=== PATIENT | female | born 1970 | race Two or more races ===

== ENCOUNTER 2024-03-24 19:35 | Emergency (ER) | payer OTHER, SELFPAY ==
[2024-03-24 19:41] VITALS: BP 143/77; PULSE 82; RESP 20; TEMP 36.3; O2SAT 98; BMI 28.9
--- NOTE | 2024-03-24 20:53 | CRLHL7_ITS ---
For Patients: As a result of the Century Cures Act, medical imaging exams and procedure reports are released immediately into your electronic medical record. You may view this report before your referring provider. If you have questions, please contact your health care provider. INDICATION: Abdominal pain. Hematuria. TECHNIQUE: Multiplanar CT examination of the abdomen and pelvis was performed without the use of intravenous contrast. COMPARISON: None. FINDINGS: Lower chest: No focal consolidation. Normal heart size. No pleural effusions or pneumothorax. Liver: Unremarkable. Gallbladder: Unremarkable. Biliary: Unremarkable. Pancreas: Within normal limits. Spleen: Unremarkable. Adrenal glands: Unremarkable. Renal/ureters/bladder: The left kidney appears slightly edematous, with mild left-sided hydroureteronephrosis to the level of the mid to distal ureter where there is an obstructing 4 mm urinary calculus (2:112). The right kidney is unremarkable without obstructive uropathy. Limited evaluation for renal masses without the use of intravenous contrast. Underdistended bladder limits evaluation. Pelvis: Hysterectomy. Gastrointestinal: No bowel wall thickening or bowel obstruction. Normal appendix. No significant colonic diverticulosis. Moderate colonic stool burden. Vasculature: No aortic aneurysm. Mild atherosclerotic calcifications. Lymph nodes: No pathologic lymphadenopathy by size criteria. Peritoneum: No free fluid or pneumoperitoneum. No drainable fluid collections. Abdominal wall/soft tissues: Unremarkable. Bones: No acute osseous abnormalities. Mild degenerative changes, with moderate degenerative disc disease at L4-L5. IMPRESSION: Mild left-sided hydroureteronephrosis to the level of the mid to distal ureter where there is an obstructing 4 mm urinary calculus. Please note that all CT scans at this facility use dose modulation, iterative reconstruction, and/or weight-based dosing when appropriate to reduce radiation dose to as low as reasonably achievable. Dictated by Mark Tavera MD @ 03/24/2024 10:19:30 PM (Electronically Signed)
--- NOTE | 2024-03-24 23:47 | ED.GENADULT ---
HPI - General Adult General Date Seen: 03/24/24 Chief complaint: Urogenital Problems, Female Stated complaint: Abdominal pain, blood in urine Time Seen by Provider: 03/24/24 22:31 Source: patient and RN notes reviewed Mode of arrival: ambulatory Limitations: no limitations History of Present Illness HPI narrative: Patient is a 54-year-old woman who says she had brown urine this morning, at around noon had hematuria and developed some left-sided abdominal pain and suprapubic pain. She went to Clinic, where she says they did a UA and told her she had a bladder infection, prescribed Bactrim, but she went home and pain became severe and felt similar to previous kidney stones. She said she took some ibuprofen prior to coming in and the pain is now settled down. She has had some nausea but no vomiting. No fevers, no dysuria. No frequency or urgency. Related Data Home Medications ?Medication ?Instructions ?Recorded ?Confirmed escitalopram oxalate 20 mg tablet 20 mg PO DAILY 03/24/24 03/24/24 sulfamethoxazole 800 1 tab PO BID 03/24/24 03/24/24 mg-trimethoprim 160 mg tablet Review of Systems Status of ROS: Reports: 10 or more systems reviewed and unremarkable except as noted in History and below [facility] Social History Non-prescribed substance use: denies use Exam Narrative: Exam Narrative: Vital signs as noted above. In general, an alert, well-appearing patient. Head: Normocephalic, atraumatic. Eyes: Pupils are equal reactive. Extraocular movements are full. Conjunctivae are normal. ENT: Mucous membranes are moist. Throat is normal. Neck: Supple without lymphadenopathy. Heart: Regular rate and rhythm. No murmur or rub. Lungs: Clear bilaterally. No increased work of breathing, crackles or wheezes. Abdomen: Soft and nontender. No CVA tenderness. Extremities: Well perfused. No edema. No calf tenderness. Pulses intact. Neurologic: Patient is alert and oriented to person and place. Speech is fluent. Face is symmetric. Moves all extremities equally. Affect: Normal. Skin: Warm and dry. Well perfused. Const: Vital Signs, click to edit/add: Vital Signs - 24 hr 03/24/24 19:41 Temperature 97.3 F L Pulse Rate [Pulse Oximeter] 82 Respiratory Rate 20 Blood Pressure [Ri ght Upper Arm] 143/77 H Pulse Oximetry 98 Oxygen Delivery Me thod Room Air Documenting provider has reviewed patient's vital signs: yes Course Course ED Course: I ordered a CT of the abdomen without contrast when this patient was in triage. Review shows mild hydronephrosis, and left ureteral stone, final radiology read as follows:FINDINGS: Lower chest: No focal consolidation. Normal heart size. No pleural effusions or pneumothorax. Liver: Unremarkable. Gallbladder: Unremarkable. Biliary: Unremarkable. Pancreas: Within normal limits. Spleen: Unremarkable. Adrenal glands: Unremarkable. Renal/ureters/bladder: The left kidney appears slightly edematous, with mild left-sided hydroureteronephrosis to the level of the mid to distal ureter where there is an obstructing 4 mm urinary calculus (2:112). The right kidney is unremarkable without obstructive uropathy. Limited evaluation for renal masses without the use of intravenous contrast. Underdistended bladder limits evaluation. Pelvis: Hysterectomy. Gastrointestinal: No bowel wall thickening or bowel obstruction. Normal appendix. No significant colonic diverticulosis. Moderate colonic stool burden. Vasculature: No aortic aneurysm. Mild atherosclerotic calcifications. Lymph nodes: No pathologic lymphadenopathy by size criteria. Peritoneum: No free fluid or pneumoperitoneum. No drainable fluid collections. Abdominal wall/soft tissues: Unremarkable. Bones: No acute osseous abnormalities. Mild degenerative changes, with moderate degenerative disc disease at L4-L5. IMPRESSION: Mild left-sided hydroureteronephrosis to the level of the mid to distal ureter where there is an obstructing 4 mm urinary calculus. Patient was able to show me the UA from earlier today in clinic. This showed greater than 100 red cells but 0 white blood cells. I do not think this likely represents urinary tract infection and I suggested she not take the Bactrim. Do recommend that she push fluids, we talked about medications here and she says right now she does not think she needs anything would like to have something for home. At 4 mm, would suspect this stone will pass, will have her strain her urine. Gave her the phone number for Urology if 7-10 in days go by and she fell she has not passed the stone. In the meantime, ibuprofen 400 mg 3 times daily, oxycodone, 10 tablets from [facility] as well as Zofran were provided. Return any time for new symptoms such as fever, chills, vomiting, severe uncontrolled pain. Vital Signs Vital signs: Initial Vital Signs Temperature 97.3 F L 03/24/24 19:41 Temperature Source Temporal Artery Scan 03/24/24 19:41 Pulse Rate 82 03/24/24 19:41 Respiratory Rate 20 03/24/24 19:41 Blood Pressure 143/77 H 03/24/24 19:41 Blood Pressure Mean 99 03/24/24 19:41 Pulse Oximetry 98 03/24/24 19:41 Oxygen Delivery Method Room Air 03/24/24 19:41 Vital Signs Temperature 97.3 F L 03/24/24 19:41 Pulse Rate 82 03/24/24 19:41 Respiratory Rate 20 03/24/24 19:41 Blood Pressure 143/77 H 03/24/24 19:41 Pulse Oximetry 98 03/24/24 19:41 Oxygen Delivery Method Room Air 03/24/24 19:41 Temperature 97.3 F L 03/24/24 19:41 Pulse Rate 82 03/24/24 19:41 Respiratory Rate 20 03/24/24 19:41 Blood Pressure 143/77 H 03/24/24 19:41 Pulse Oximetry 98 03/24/24 19:41 Oxygen Delivery Method Room Air 03/24/24 19:41 Discharge Plan Discharge Clinical Impression: Calculus of left ureter Patient Disposition: Home, Self-Care Condition: Stable Instructions: Ureteral Stones (ED) Additional Instructions: Push fluids, strain urine. Ibuprofen 400 mg 3 times daily with food for the next several days. Oxycodone if needed for more severe pain, Zofran if needed for nausea. If at any time if new symptoms such as fevers, chills, uncontrolled vomiting or severe uncontrolled pain, return to the emergency department. If you do not feel that you have passed the stone over the next 7-10 days, recommend urology follow-up, call [phone] for urology follow-up. Prescriptions: No Action sulfamethoxazole-trimethoprim 800-160 mg tablet 1 tab PO BID escitalopram oxalate 20 mg tablet 20 mg PO DAILY Stand Alone Forms: [employer] Info Instructions
== END 2024-03-24 22:57 | disposition home or self-care (01) ==
PROVIDERS: Emergency Provider Emergency Medicine
DX: N20.1 Calculus of ureter (principal)
CPT/HCPCS: 74176; 81001; 99283; 99284

== ENCOUNTER 2024-07-20 14:55 | Outpatient (CLI) | payer OTHER, SELFPAY ==
--- OUTSIDE RECORDS SUMMARY | 2024-07-20 15:02 | XMS_ITS | Clinical Summary ---
Author Organization [facility] Address [address] [place] [id number] Care Team Providers Care Salon Customer Experience Specialist Name Role Phone John Kelley PA-C Primary Care Provider Lizzie Shine RN Unavailable Unavailable John Kelley PA-C Unavailable + [phone] Allergies Active Allergy Reactions Criticality Noted Date Comments Dust Mites 01/25/2010 Other reaction(s): Rhinorrhea Prednisone 11/26/2018 Does not tolerate well, mood Medications Medication Sig Dispensed Refills Start Date End Date Status Vitamin D, Cholecalciferol, 10 MCG (400 UNIT) TABS Active fish oil-omega-3 fatty acids 1000 MG capsule Take 2 g by mouth daily Active magnesium 250 MG tablet Take 1 tablet by mouth daily Active albuterol (PROAIR HFA) 108 (90 Base) MCG/ACT inhalerIndications :Infection due to 2019 novel coronavirus Inhale 2 puffs into the lungs every 4 hours as needed for shortness of breath or wheezing 18 g 12/16/2023 Active escitalopram (LEXAPRO) 20 MG tabletIndications: Severe episode of recurrent major depressive disorder, without psychotic features (H) Take 1 tablet (20 mg) by mouth daily 90 tablet 1 04/29/2024 Active Semaglutide-Weight Management (WEGOVY) 1 MG/0.5ML penIndications:Cla ss 1 obesity with serious comorbidity and body mass index (BMI) of 30.0 to 30.9 in adult, unspecified obesity type Inject 1 mg subcutaneously once a week 6 mL 1 05/06/2024 Active Active Problems Problem Noted Date Diagnosed Date Major depressive disorder, recurrent episode, mi ld 11/26/2019 Carpal tunnel syndrome of right wrist 09/09/2015 BMI 33.0-33.9,adult 08/29/2015 Pre-diabetes 01/14/2015 Sleep apnea 09/29/2014 Fatty infiltration of liver 11/05/2012 Overview: Her history; notes dx in [place] Anxiety 01/17/2011 Vitamin D deficiency 12/02/2010 CARDIOVASCULAR SCREENING; LDL GOAL LESS THAN 160 11/24/2010 Depressive disorder, not elsewhere classified Resolved Problems Problem Noted Date Diagnosed Date Resolved Date Diabetes mellitus type II, n on insulin dependent 02/20/2023 02/20/2023 Major depression in complete remission 01/27/2013 08/29/2015 Moderate major depression 12/31/2012 Morbid obesity 11/05/2012 04/29/2024 Major depression in partial remission 06/27/2012 12/31/2012 Major depression in complete remission 03/20/2011 06/27/2012 Recurrent major depression i n partial remission 01/17/2011 03/20/2011 Major depression in complete remission 11/24/2010 01/17/2011 Encounters Date Type Department Care Team Description 05/28/2024 11:15 AM CDT Ancillary Procedure [facility] [address] [place] [phone] John Kelley PA-C Visit for screening mammogram 05/28/2024 Travel 05/01/2024 MyC Medical Advice [facility] [address] [place] [phone] John Kelley PA-C Medication Request 04/30/2024 MyC Medical Advice [facility] [address] [place] [phone] John Kelley PA-C Medication Request (Ozempic 1mg send to [facility]... 04/29/2024 10:30 AM CDT Office Visit [facility] [address] [place] [phone] John Kelley PA-C Routine general medical examination at a health care facility (Primary Dx); Pre-diabetes; Severe episode of recurrent major depressive disorder, without psychotic features (H); Class 1 obesity with serious comorbidity and body mass index (BMI) of 30.0 to 30.9 in adult, unspecified obesity type; Visit for screening mammogram 04/29/2024 Travel from Last 3 Months Immunizations Name Administration Dates Next Due Influenza (IIV3) PF 07/15/2014,10/31/2012,2010 MMR 08/22/2007,07/14/2007 Mantoux Tuberculin Skin Test 04/16/2017,12/11/19 14 TDAP (Adacel,Boostrix) 03/20/2011 TDAP Vaccine (Adacel) 03/21/2011 TDAP Vaccine (Boostrix) 03/30/2019 Tdap (Adult) Unspecified Formulation 03/20/2011, 04/19/2005 Varicella 08/22/2007,07/14/2007 Family History Medical History Relation Comments Diabetes Brother 1 Psychotic Disorder Brother 2 Schizophrenia Psychotic Disorder Brother 3 ? depression; on meds Cerebrovascular Disease Father Diabetes Mother Neurologic Disorder Mother TIA Colon Cancer No family hx of Relation Status Comments Brother 1 Brother 2 Brother 3 Father Mother Social History Tobacco Use Types Packs/Day Years Used Date Smoking Tobacco: Never Passive Smoke Exposure: Never Smokeless Tobacco: Never Tobacco Cessation:Counseling Given: Not Answered Alcohol Use Standard Drinks/Week Comments No 0 (1 standard drink = 0.6 oz pur e alcohol) Social Connection and Isolation Panel [NHANES] A nswer Date Recorded Frequency of Communication with Friends and Fami ly Not on file 04/29/2024 How often do you get together with friends or re latives? Never 04/29/2024 Attends Mosque Services Not on file 04/29 Active Member of Clubs or Organizations Not on f ile 04/29/2024 Attends Club or Organization Meetings Not on jakob e 04/29/2024 Marital Status Not on file 04/29/2024 PHQ-2 Answer Date Recorded PHQ-2 Score 5 04/29/2024 [facility] of Occupat ional Health - Occupational Stress Questionnaire Answer Date Recorded Do you feel stress - tense, restless, nervous, or anxious, or unable to sleep at night because your mind is troubled all the time - these days? Very much 04/29/2024 Exercise Vital Sign Answer Date Recorde d On average, how many days pe r week do you engage in moderate to strenuous exercise (like a brisk walk)? 1 day Minutes of Exercise per Session Not on file 04/29/2024 Adolescent Education Answer Date Record ed Getting School Help Needed Not on file 07/12 Food Insecurity Answer Date Recorded Within the past 12 months, d id you worry that your food would run out before you got money to buy more? No 04/29/2024 Within the past 12 months, d id the food you bought just not last and you didn? t have money to get more? No 04/29/2024 Housing Stability Answer Date Recorded Do you have housing? (Summer maya is defined as stable permanent housing and does not include staying ouside in a car, in a tent, in an abandoned building, in an overnight alf, or couch-surfing.) Yes 04/29/2024 Are you worried about losing your housing? No 04/29/2024 Financial Resource Strain Answer Date R ecorded Within the past 12 months, h ave you or your family members you live with been unable to get utilities (heat, electricity) when it was really needed? No 04/29/2024 Transportation Needs Answer Date Record ed Within the past 12 months, h as lack of transportation kept you from medical appointments, getting your medicines, non-medical meetings or appointments, work, or from getting things that you need? No 04/29/2024 Sex and Gender Information Value Date Recorded Sex Assigned at Not on file Gender Identity Not on file Sexual Orientation Not on file Last Filed Vital Signs Vital Sign Reading Time Taken Comments Blood Pressure 116/74 04/29/2024 10:18 AM CDT Pulse 69 04/29/2024 10:18 AM CDT Temperature 36.8 ??C (98.3 ??F) 04/29/2024 10:18 AM C DT Respiratory Rate 15 04/29/2024 10:18 AM CDT Oxygen Saturation 92% 04/29/2024 10:18 AM CDT Inhaled Oxygen Concentration - - Weight 90.9 kg (200 lb 4.8 oz) 04/29/2024 10:18 AM CDT Height 172.7 cm (5' 8) 04/29/2024 10:18 AM CDT Body Mass Index 30.46 04/29/2024 10:18 AM CDT Plan of Treatment Health Maintenance Due Date Last Done Comments ASTHMA ACTION PLAN 1970 CT COLONOGRAPHY 1970 FIT 1970 FLEX SIG 1970 sDNA (Cologuard) 1970 Pneumococcal Vaccine: Pediatrics (0 to 5 Years) and At-Risk Patients (6 to 64 Years) (1 of 2 - PCV) 02/01/1974 HIV SCREENING 02/01/1983 HEPATITIS B IMMUNIZATION (1 of 3 - 19+ 3-dose series) 02/01/1987 ZOSTER IMMUNIZATION (1 of 2) 02/01/2018 EYE EXAM 08/10/2023 08/10/2022 MICROALBUMIN 02/22/2024 02/21/2023 COVID-19 Vaccine ( season) 2024 03/09/2021, 02/17/2021 INFLUENZA VACCINE (#1) 2024 0 (Declined), 07/15/2014, 10/31/2012, Additional history exists A1C 07/30/2024 04/29/2024, 05/0 01/2023, 07/16/2022, Additional history exists ASTHMA CONTROL TEST 10/30/2024 04/29/2024, 02/20/2023, 09/27/2022, Additional history exists PHQ-9 10/30/2024 04/29/2024, 05/0 12/2022, 09/11/2022, Additional history exists ANNUAL REVIEW OF HM ORDERS 04/29/202504/29, 07/17/2022, 04/11/2021 BMP 04/29/2025 04/29/2024, 06/0 01/2024, 07/16/2022, Additional history exists LIPID 04/29/2025 04/29/2024, 05/0 01/2023, 11/26/2019, Additional history exists YEARLY PREVENTIVE VISIT 04/29/2025 04/29/20 24, 11/26/2019, 01/14/2015, Additional history exists MAMMO SCREENING 05/28/2026 05/28/2024, 02/18, 01/25/2015 DTAP/TDAP/TD IMMUNIZATION (6 - Td or Tdap) 03/30/2029 03/30/2019, 03/21/2011, 03/20/2011, Additional history exists ADVANCE CARE PLANNING 04/29/2029 04/29/2024 COLONOSCOPY 12/15/2029 12/15/2019, 11/22, 02/14/2010 COLORECTAL CANCER SCREENING 12/15/2029 RSV VACCINE (1 - 1-dose 75+ series) 02/01/2043 HEPATITIS C SCREENING Completed 04/20/2014 PAP Discontinued 01/14/2015, 10/21, 11/24/2010, Additional history exists DEPRESSION ACTION PLAN Completed 8, 10/23/2016, 08/29/2015, Additional history exists DIABETIC FOOT EXAM Discontinued HPV IMMUNIZATION Aged Out No longer e ligible based on patient's age to complete this topic MENINGITIS IMMUNIZATION Aged Out No l onger eligible based on patient's age to complete this topic RSV MONOCLONAL ANTIBODY Aged Out No l onger eligible based on patient's age to complete this topic Procedures Procedure Name Priority Date/Time Associated Diagnosis Comments MA SCREENING BILATERAL W/ LUIS ANGEL Routine 05/28/2024 11:07 AM CDT Visit for screening mammogram INSULIN LEVEL Routine 04/29/2024 10:53 AM CDT Pre-diabetes Class 1 obesity with serious comorbidity and body mass index (BMI) of 30.0 to 30.9 in adult, unspecified obesity type COMPREHENSIVE METABOLIC PANEL Routine 04/29/2024 10:53 AM CDT Routine general medical examination at a health care facility Pre-diabetes LIPID REFLEX TO DIRECT LDL PANEL Routine 04/29/2024 10:53 AM CDT Routine general medical examination at a health care facility HEMOGLOBIN A1C Routine 04/29/2024 10:53 AM CDT Pre-diabetes ALBUMIN RANDOM URINE QUANTITATIVE Routine 02/21/2023 2:01 PM CDT Diabetes mellitus type II, non insulin dependent (H) EYE EXAM - HIM SCAN 08/10/2022 1 2:00 AM CDT COLONOSCOPY Routine 12/15/2019 12:47 PM OFFICE TECHNOLOGY PROFESSOR ASTHMA CONTROL TEST - HIM SCAN Routine 11/24/2016 PAP IMAGED THIN LAYER SCREEN Routine 01/14/2015 12:00 AM CDT Routine General Medical Examination At A [facility] HEPATITIS C ANTIBODY Routine 04/20/2014 2:53 PM CDT Fatty infiltration of liver from Last 3 Months or Most Recently Relevant to Health Maintenance Results * MA Screen Bilateral w/Luis Angel (05/28/2024 11:07 AM CDT) Anatomical Region Laterality Modality Breast Bilateral Mammography Impressions 05/29/2024 8:50 AM CDT IMPRESSION: ACR BI-RADS Category 1: Negative BREAST CANCER SCREENING RECOMMENDATION: Routine yearly mammography beginning at age 40 or as discussed with your provider. The results and recommendations of this examination will be communicated to the patient. Maurizio Rhodes MD Narrative 05/29/2024 8:50 AM CDT BILATERAL FULL FIELD DIGITAL SCREENING MAMMOGRAM WITH TOMOSYNTHESIS Performed on: 05/28/24 Compared to: 03/05/2023 and 01/25/2015 Technique: ??This study was evaluated with the assistance of Computer-Aided Detection. ??Breast Tomosynthesis was used in interpretation. Findings: There are scattered areas of fibroglandular density. ??There is no radiographic evidence of malignancy. John Kelley PA-C IMG MAMMOGRAPH Y ORDERABLES * Insulin level (04/29/2024 10:53 AM CDT) Insulin 11.0 2.6 - 24.9 uU/mL 04/30/2024 8:25 AM CDT [facility] Blood BLOOD SPECIMEN / Unknown Venipuncture / Unknown 04/29/2024 10:53 AM CDT 04/29/2024 10:53 AM CDT John Kelley PA-C LAB - BLOOD OR DERABLES [facility] [address] [facility], [address] [place] [address], [facility] * (ABNORMAL) Lipid panel reflex to direct LDL Fasting (04/29/2024 10:53 AM CDT) Cholesterol 238(H) <200 mg/dL 04/30/2024 8:25 AM CDT [facility] Triglycerides 135 <150 mg/dL 04/30/2024 8:25 AM CDT [facility] Direct Measure HDL 62 >=50 mg/dL 04/30/2024 8:25 AM CDT [facility] LDL Cholesterol Calculated 149(H) <=100 mg/dL 04/30/2024 8:25 AM CDT [facility] Non HDL Cholesterol 176(H) <130 mg/dL 04/30/2024 8:25 AM CDT [facility] Patient Fasting > 8hrs? Yes 04/30/2024 8:25 AM CDT [facility] Blood BLOOD SPECIMEN / Unknown Venipuncture / Unknown 04/29/2024 10:53 AM CDT 04/29/2024 10:53 AM CDT Narrative [facility] - 04/30/2024 8:25 AM CDT Cholesterol Desirable: ??<200 mg/dL Triglycerides Normal: ??Less than 150 mg/dL Borderline High: ??150-199 mg/dL High: ??200-499 mg/dL Very High: ??Greater than or equal to 500 mg/dL Direct Measure HDL Female: ??Greater than or equal to 50 mg/dL Male: ??Greater than or equal to 40 mg/dL LDL Cholesterol Desirable: ??<100mg/dL Above Desirable: ??100-129 mg/dL Borderline High: ??130-159 mg/dL High: ??160-189 mg/dL Very High: ??>= 190 mg/dL Non HDL Cholesterol Desirable: ??130 mg/dL Above Desirable: ??130-159 mg/dL Borderline High: ??160-189 mg/dL High: ??190-219 mg/dL Very High: ??Greater than or equal to 220 mg/dL John Kelley PA-C LAB - BLOOD OR DERABLES [facility] [address] [facility], [address] [place] [phone] * HEMOGLOBIN A1C (04/29/2024 10:53 AM CDT) Hemoglobin A1C 5.5 0.0 - 5.6 % 04/29/2024 11:12 AM CDT [facility] Comment: Normal <5.7% Prediabetes 5.7-6.4% ?? Diabetes 6.5% or higher Note: Adopted from ADA consensus guidelines. Blood BLOOD SPECIMEN / Unknown Venipuncture / Unknown 04/29/2024 10:53 AM CDT 04/29/2024 10:53 AM CDT John Kelley PA-C LAB - BLOOD OR DERABLES LABORATORY [facility] [place] [facility] [address] [facility] (no room number, 1st floor of clinic) [place] [address], [facility] * (ABNORMAL) Comprehensive metabolic panel (BMP + Alb, Alk Phos, ALT, AST, Total. Bili, TP) (04/29/2024 10:53 AM CDT) Sodium 141 135 - 145 mmol/L 04/30/2024 8:25 AM CDT [facility] Potassium 4.7 3.4 - 5.3 mmol/L 04/30/2024 8:25 AM CDT [facility] Carbon Dioxide (CO2) 29 22 - 29 mmol/L 04/30/2024 8:25 AM CDT [facility] Anion Gap 7 7 - 15 mmol/L 04/30/2024 8:25 AM CDT [facility] Urea Nitrogen 12.3 6.0 - 20.0 mg/dL 04/30/2024 8:25 AM CDT [facility] Creatinine 0.60 0.51 - 0.95 mg/dL 04/30/2024 8:25 AM CDT [facility] GFR Estimate >90 >60 mL/min/1. 73m2 04/30/2024 8:25 AM CDT [facility] Comment:eGFR calculated us2020 CKD-EPI equation. Calcium 9.7 8.6 - 10.0 mg/dL 04/30/2024 8:25 AM CDT [facility] Chloride 105 98 - 107 mmol/L 04/30/2024 8:25 AM CDT [facility] Glucose 102(H) 70 - 99 mg/dL 04/30/2024 8:25 AM CDT [facility] Alkaline Phosphatase 64 40 - 150 U/L 04/30/2024 8:25 AM CDT [facility] AST 24 0 - 45 U/L 04/30/2024 8:25 AM CDT [facility] Comment:Reference intervals for this test were updated on 04/01/2023 to more accurately reflect our healthy population. There may be differences in the flagging of prior results with similar values performed with this method. Interpretation of those prior results can be made in the context of the updated reference intervals. ALT 25 0 - 50 U/L 04/30/2024 8:25 AM CDT [facility] Comment:Reference intervals for this test were updated on 04/01/2023 to more accurately reflect our healthy population. There may be differences in the flagging of prior results with similar values performed with this method. Interpretation of those prior results can be made in the context of the updated reference intervals. Protein Total 7.6 6.4 - 8.3 g/dL 04/30/2024 8:25 AM CDT [facility] Albumin 4.4 3.5 - 5.2 g/dL 04/30/2024 8:25 AM CDT [facility] Bilirubin Total 0.5 <=1.2 mg/dL 04/30/2024 8:25 AM CDT [facility] Patient Fasting > 8hrs? Yes 04/30/2024 8:25 AM CDT [facility] Blood BLOOD SPECIMEN / Unknown Venipuncture / Unknown 04/29/2024 10:53 AM CDT 04/29/2024 10:53 AM CDT John Kelley PA-C LAB - BLOOD OR DERABLES [facility] [address] [facility], [address] [place] [phone] * Albumin Random Urine Quantitative with Creat Ratio (02/21/2023 2:01 PM CDT) Creatinine Urine mg/dL 152.0 mg/dL 02/21/2023 8:49 PM CDT [facility] Comment:The reference ranges have not been established in urine creatinine. The results should be integrated into the clinical context for interpretation. Albumin Urine mg/L <12.0 mg/L 2022 8:49 PM CDT [facility] Comment:The reference ranges have not been established in urine albumin. The results should be integrated into the clinical context for interpretation. Albumin Urine mg/g Cr 02/21/2023 8:49 PM CDT [facility] Comment: Unable to calculate, urine albumin and/or urine creatinine is outside detectable limits. Microalbuminuria is defined as an albumin:creatinine ratio of 17 to 299 for males and 25 to 299 for females. A ratio of albumin:creatinine of 300 or higher is indicative of overt proteinuria. Due to biologic variability, positive results should be confirmed by a second, first-morning random or 24-hour timed urine specimen. If there is discrepancy, a third specimen is recommended. When 2 out of 3 results are in the microalbuminuria range, this is evidence for incipient nephropathy and warrants increased efforts at glucose control, blood pressure control, and institution of therapy with an keeodugufrq-qiybxacqpm-zfppoz (ANEUDY) inhibitor (if the patient can tolerate it). ?? Urine URINE SPECIMEN / Unknown Non-blood Collection / Unknown 02/21/2023 2:01 PM CDT 02/21/2023 2:01 PM CDT John Kelley PA-C LAB - URINE OR DERABLES LABORATORY [facility] [address] [facility], [address] [place] [phone], [facility] [phone] * EYE EXAM - HIM SCAN (08/10/2022 12:00 AM CDT) RETINOPATHY NEGATIVE 08/10/2022 Narrative Ethel Max - 08/10/2022 12:00 AM CDT EYE EXAM FAMILY VISION Provider Outside OTHER * COLONOSCOPY (12/15/2019 12:47 PM OFFICE TECHNOLOGY PROFESSOR) COLONOSCOPY [facility] Patient Name: Miranda Scott ?Procedure Date: 12/15/2019 12:47 PM ? Date of : 1970 ?Admit Type: Outpatient Age: 49 ? Gender: Female Attending MD: Ricki Thornton MD ?? Total Sedation Time: 47_minutes continuous bedside 1:1 Instrument Name: 216 - Pediatric Colonoscope,224 - Adult Colonoscope Procedure: ?Colonoscopy Indications: ?Screening for colorectal malignant neoplasm Providers: ?Ricki Thornton MD (Doctor) Referring MD: ? JOSE Burleson (Referring MD) Medicines: ?Midazolam 4 mg IV, Fentanyl 200 micrograms IV Complications: ?No immediate complications. Procedure: ?Pre-Anesthesia Assessment: ?- Prior to the procedure, a History and Physical ?was performed, and patient medications and ?allergies were reviewed. The patient is competent. ?The risks and benefits of the procedure and the ?sedation options and risks were discussed with the ?patient. All questions were answered and informed ?consent was obtained. Patient identification and ?proposed procedure were verified by the physician ?in the procedure room. Mental Status Examination: ?alert and oriented. Airway Examination: normal ?oropharyngeal airway and neck mobility. Respiratory ?Examination: clear to auscultation. CV Examination: ?normal. Prophylactic Antibiotics: The patient does ?not require prophylactic antibiotics. Prior ?Anticoagulants: The patient has taken no previous ?anticoagulant or antiplatelet agents. ASA Grade ?Assessment: II - A patient with mild systemic ?disease. After reviewing the risks and benefits, ?the patient was deemed in satisfactory condition to ?undergo the procedure. The anesthesia plan was to ?use moderate sedation / analgesia (conscious ?sedation). Immediately prior to administration of ?medications, the patient was re-assessed for ?adequacy to receive sedatives. The heart rate, ?respiratory rate, oxygen saturations, blood ?pressure, adequacy of pulmonary ventilation, and ?response to care were monitored throughout the ?procedure. The physical status of the patient was ?re-assessed after the procedure. ?After obtaining informed consent, the colonoscope ?was passed under direct vision. Throughout the ?procedure, the patient's blood pressure, pulse, and ?oxygen saturations were monitored continuously. The ?Vidavee Pediatric Colonoscope, Model # PCF-H190DL, ?Endora # 216, SN # [id number] was introduced through ?the anus and advanced to the cecum, identified by ?appendiceal orifice and ileocecal valve. The ?Vidavee Adult Colonoscope, Model # CF-WL640W, ?Endora # 224, SN # [id number] was introduced through ?the and advanced to. The patient tolerated the ?procedure well. The quality of the bowel ?preparation was good. During the procedure the ?patient had to be repositioned. The colonoscopy was ?performed without difficulty. The colonoscopy was ?technically difficult and complex due to a ?redundant colon. Successful completion of the ?procedure was aided by increasing the dose of ?sedation medication and performing the maneuvers ?documented (below) in this report. ? Findings: ? The perianal and digital rectal examinations were normal. ? The entire examined colon appeared normal on direct and retroflexion ? views. ? Impression: ? - The entire examined colon is normal on direct and ?retroflexion views. ?- No specimens collected. Recommendation: ? - Repeat colonoscopy in 10 years for screening ?purposes. ? Procedure Code(s): ? --- Professional --- ? G0121, Colorectal cancer screening; colonoscopy on individual not ? meeting criteria for high risk Diagnosis Code(s): ? --- Professional --- ? Z12.11, Encounter for screening for malignant neoplasm of colon CPT copyright 2018 [employer]. All rights reserved. The codes documented in this report are preliminary and upon hospital coder review may be revised to meet current compliance requirements. Electronically signed by Ricki Thornton MD __ Ricki Thornton MD 12/15/2019 1:42:45 PM I was physically present for the entire viewing portion of the exam. Ricki Thornton MD Number of Addenda: 0 Note Initiated On: 12/15/2019 12:47 PM MRN: ?[id number] Procedure Date: ? 12/15/2019 12:47:39 PM Scope Withdrawal Time: 0 hours 6 minutes 18 seconds Total Procedure Duration: 0 hours 45 minutes 33 seconds Estimated Blood Loss: ? Scope In: 12:53:17 PM Scope Out: 1:38:50 PM RADIOLOGY RESULTS 12/15/2019 12:4 7 PM OFFICE TECHNOLOGY PROFESSOR John Kelley PA-C PROCEDURES RADIOLOGY RESULTS * Asthma Control Test - HIM Scan (11/24/2016) ASTHMA HOSPITALIZATIONS 0 ASTHMA ER 0 ACT SCORE 6 Narrative Hazel Bo - 11/24/2016 [place] [facility], PROGRESS NOTE Provider Outside PFT ORDERABLES * PAP imaged thin layer, screen (01/14/2015 12:00 AM CDT) PAP REJI Polo Report Patient Name: MIRANDA SCOTT MR#: [id number] Specimen #: [id number] Collected: 01/14/2015 Received: 01/17/2015 Reported: 01/18/2015 11:43 Ordering Phy(s): ALBA VU SPECIMEN/STAIN PROCESS: Pap imaged thin layer prep screening (Surepath, FocalPoint with guided screening) ? Pap-Cyto x 1, Reflex HPV if ASCUS/LSIL x 1 SOURCE: Cervical, endocervical Pap imaged thin layer prep screening (Surepath, FocalPoint with guided screening) SPECIMEN ADEQUACY: Satisfactory for evaluation. -Transformation zone component present. CYTOLOGIC INTERPRETATION: Negative for Intraepithelial Lesion or Malignancy Electronically signed out by: DEDE Hazel (ASCP) Processed and screened at [facility] CLINICAL HISTORY: Previous normal pap Date of Last Pap: 11/05/12, Papanicolaou Test Limitations: ??Cervical cytology is a screening test with limited sensitivity; regular screening is critical for cancer prevention; Pap tests are primarily effective for the diagnosis/preventi on of squamous cell carcinoma, not adenocarcinomas or other cancers. TESTING LAB LOCATION: [facility] [address] [place], [place] ??[phone] COLLECTION SITE: Client: ??[facility] Location: RMFP (R) COPATH Cytologic material (specimen) 01/14/2015 01/17/2015 11:14 AM CDT Alba Vu MD LAB - OPTIME CLINICA L SPECIMEN Performing Organization Address City/[facility]/ZIP Co de Phone Number COPATH * Hepatitis C antibody (04/20/2014 2:53 PM CDT) Hepatitis C Antibody Negative NEG [facility] Blood specimen (specimen) 04/20/2014 2:53 PM CDT 04/20/2014 2:54 PM CDT Alba Vu MD LAB - BLOOD ORDERABL ES [facility] from Last 3 Months or Most Recently Relevant to Health Maintenance Care Teams Salon Customer Experience Specialist Relationship Specialty Start Date End Date John Kelley PA-C [id number] [address] [id number] PCP - General Physician Population Health Manager - Medical 12/15/19 Lizzie Shine, COURT[place] Personal Advocate & Liaison (PAL) 02/04/20 John Kelley PA-C [id number] [address] [phone] Assigned PCP 03/02/23
--- OUTSIDE RECORDS SUMMARY | 2024-07-20 15:02 | XMS_ITS | Encounter Summary ---
Author Organization [facility] Address [address] [place] [address]. [place] [address] Care Team Providers Care Trimmer And Borer Machine Operator Name Role Phone John Kelley PA-C Primary Care Provider Lizzie Shine RN Unavailable Unavailable John Kelley PA-C Unavailable + [phone] Reason for Referral * Diagnostic Imaging Mammo (Routine) - Pending Review Specialty Diagnoses / Procedures Referred By Ирина ayers Referred To Contact Radiology. Diagnoses Visit for screening mammogram Procedures MA Diagnostic Digital Bilateral John Kelley PA-C [address] [place] [address] Referral ID Status Reason Start Date Expiration Date V isits Requested Visits Authorized [id number] Pending Review 04/29/2024 04/29/2025 1 1 Reason for Visit * Reason Comments Physical Recheck Medication Encounter Details Date Type Department Care Team (Late st Contact Info) Description 04/29/2024 10:30 AM CDT Office Visit [facility] [address] [place] [id number] John Kelley PA-C [address] [place] [address] Routine general medical examination at a health care facility (Primary Dx); Pre-diabetes; Severe episode of recurrent major depressive disorder, without psychotic features (H); Class 1 obesity with serious comorbidity and body mass index (BMI) of 30.0 to 30.9 in adult, unspecified obesity type; Visit for screening mammogram Social History Tobacco Use Types Packs/Day Years Used Date Smoking Tobacco: Never Passive Smoke Exposure: Never Smokeless Tobacco: Never Alcohol Use Standard Drinks/Week Comments No 0 (1 standard drink = 0.6 oz pur e alcohol) Social Connection and Isolation Panel [NHANES] A nswer Date Recorded Frequency of Communication with Friends and Fami ly Not on file 04/29/2024 How often do you get together with friends or re latives? Never 04/29/2024 Attends Sabianism Services Not on file 04/29 Active Member of Clubs or Organizations Not on f ile 04/29/2024 Attends Club or Organization Meetings Not on jakbo e 04/29/2024 Marital Status Not on file 04/29/2024 PHQ-2 Answer Date Recorded PHQ-2 Score 5 04/29/2024 [facility] - Occupational Stress [...] Answer Date Recorded Do you have housing? (Housin g is defined as stable permanent housing and does not include staying ouside in a car, in a tent, in an abandoned building, in an overnight usp, or couch-surfing.) Yes 04/29/2024 Are you worried [...] on file Sexual Orientation Not on file documented as of this encounter Last Filed Vital Signs Vital Sign Reading [...] Mass Index 30.46 04/29/2024 10:18 AM CDT documented in this encounter Patient Instructions * Patient Instructions* John Kelley PA-C - 04/29/2024 10:30 AM CDT Images from the original note were not included. Patient Education Preventive Care Advice This is general advice given by our system to help you stay healthy. However, your care team may have specific advice just for you. Please talk to your care team about your preventive care needs. Nutrition Eat 5 or more servings of fruits and vegetables each day. Try wheat bread, brown rice and whole grain pasta (instead of white bread, rice, and pasta). Get enough calcium and vitamin D. Check the label on foods and aim for 100% of the PUG MACHINE OPERATOR (recommendeddaily allowance). Lifestyle Exercise at least 150 minutes each week (30 minutes a day, 5 days a week). Do muscle strengthening activities 2 days a week. These help control your weight and prevent disease. No smoking. Wear sunscreen to prevent skin cancer. Have a dental exam and cleaning every 6 months. Yearly exams See your health care team every year to talk about: Any changes in your health. Any medicines your care team has prescribed. Preventive care, family planning, and ways to prevent chronic diseases. Shots (vaccines) HPV shots (up to age 26), if you've never had them before. Hepatitis B shots (up to age 59), if you've never had them before. COVID-19 shot: Get this shot when it's due. Flu shot: Get a flu shot every year. Tetanus shot: Get a tetanus shot every 10 years. Pneumococcal, hepatitis A, and RSV shots: Ask your care team if you need these based on your risk. Shingles shot (for age 50 and up) General health tests Diabetes screening: Starting at age 35, Get screened for diabetes at least every 3 years. If you are younger than age 35, ask your care team if you should be screened for diabetes. Cholesterol test: At age 39, start having a cholesterol test every 5 years, or more often if advised. Bone density scan (DEXA): At age 50, ask your care team if you should have this scan for osteoporosis (brittle bones). Hepatitis C: Get tested at least once in your life. STIs (sexually transmitted infections) Before age 24: Ask your care team if you should be screened for STIs. After age 24: Get screened for STIs if you're at risk. You are at risk for STIs (including HIV) if: You are sexually active with more than one person. You don't use condoms every time. You or a partner was diagnosed with a sexually transmitted infection. If you are at risk for HIV, ask about PrEP medicine to prevent HIV. Get tested for HIV at least once in your life, whether you are at risk for HIV or not. Cancer screening tests Cervical cancer screening: If you have a cervix, begin getting regular cervical cancer screening tests starting at age 21. Breast cancer scan (mammogram): If you've ever had breasts, begin having regular mammograms starting at age 40. This is a scan to check for breast cancer. Colon cancer screening: It is important to start screening for colon cancer at age 45. Have a colonoscopy test every 10 years (or more often if you're at risk) Or, ask your provider about stool tests like a FIT test every year or Cologuard test every 3 years. To learn more about your testing options, visit: . For help making a decision, visit: https://bit.ly/nj90170. Prostate cancer screening test: If you have a prostate, ask your care team if a prostate cancer screening test (PSA) at age 55 is right for you. Lung cancer screening: If you are a current or former smoker ages 50 to 80, ask your care team if ongoing lung cancer screenings are right for you. For informational purposes only. Not to replace the advice of your health care provider. Copyright ?? 2022 [employer]. All rights reserved. Clinically reviewed by the [facility]. Dogeo [id number] - REV 11/13. Learning About Stress What is stress? Stress is your body's response to a hard situation. Your body can have a physical, emotional, or mental response. Stress is a fact of life for most people, and it affects everyone differently. What causes stress for you may not be stressful for someone else. A lot of things can cause stress. You may feel stress when you go on a job interview, take a test, or run a race. This kind of short-term stress is normal and even useful. It can help you if you needto work hard or react quickly. For example, stress can help you finish an important job on time. Long-term stress is caused by ongoing stressful situations or events. Examples of long-term stress include long-term health problems, ongoing problems at work, or conflicts in your family. Long-term stress can harm your health. How does stress affect your health? When you are stressed, your body responds as though you are in danger. It makes hormones that speedup your heart, make you breathe faster, and give you a burst of energy. This is called the nytkz-pp-osornk stress response. If the stress is over quickly, your body goes back to normal and no harm isdone. But if stress happens too often or lasts too long, it can have bad effects. Long-term stress can make you more likely to get sick, and it can make symptoms of some diseases worse. If you tense up when you are stressed, you may develop neck, shoulder, or low back pain. Stress is linked to high bloodpressure and heart disease. Stress also harms your emotional health. It can make you charles, tense, or depressed. Your relationships may suffer, and you may not do well at work or school. What can you do to manage stress? You can try these things to help manage stress: Do something active. Exercise or activity can help reduce stress. Walking is a great way to get started. Even everyday activities such as housecleaning or yard work can help. Try yoga or laney chi. These techniques combine exercise and meditation. You may need some training at first to learn them. Do something you enjoy. For example, listen to music or go to a movie. Practice your hobby or do volunteer work. Meditate. This can help you relax, because you are not worrying about what happened before or what may happen in the future. Do guided imagery. Imagine yourself in any setting that helps you feel calm. You can use online videos, books, or a teacher to guide you. Do breathing exercises. For example: From a standing position, bend forward from the waist with your knees slightly bent. Let your arms dangle close to the floor. Breathe in slowly and deeply as you return to a standing position. Roll up slowly and lift your head last. Hold your breath for just a few seconds in the standing position. Breathe out slowly and bend forward from the waist. Let your feelings out. Talk, laugh, cry, and express anger when you need to. Talking with supportive friends or family, a counselor, or a tom leader about your feelings is a healthy way to relieve stress. Avoid discussing your feelings with people who make you feel worse. Write. It may help to write about things that are bothering you. This helps you find out how much stress you feel and what is causing it. When you know this, you can find better ways to cope. What can you do to prevent stress? You might try some of these things to help prevent stress: Manage your time. This helps you find time to do the things you want and need to do. Get enough sleep. Your body recovers from the stresses of the day while you are sleeping. Get support. Your family, friends, and community can make a difference in how you experience stress. Limit your news feed. Avoid or limit time on social media or news that may make you feel stressed. Do something active. Exercise or activity can help reduce stress. Walking is a great way to get started. Where can you learn more? Go to https://www.[employer].net/patiented Enter N032 in the search box to learn more about Learning About Stress. Current as of: August 13, 2023?Content Version: 14.0 ?? [employer]. Care instructions adapted under license by your healthcare professional. If you have questions about a medical condition or this instruction, always ask your healthcare professional. [employer] disclaims any warranty or liability for your use of this information. Learning About Depression Screening What is depression screening? Depression screening is a way to see if you have depression symptoms. It may be done by a doctor orcounselor. It's often part of a routine checkup. That's because your mental health is just as important as your physical health. Depression is a mental health condition that affects how you feel, think, and act. You may: Have less energy. Lose interest in your daily activities. Feel sad and grouchy for a long time. Depression is very common. It affects people of all ages. Many things can lead to depression. Some people become depressed after they have a stroke or find out they have a major illness like cancer or heart disease. The of a loved one or a breakup maylead to depression. It can run in families. Most experts believe that a combination of inherited genes and stressful life events can cause it. What happens during screening? You may be asked to fill out a form about your depression symptoms. You and the doctor will discussyour answers. The doctor may ask you more questions to learn more about how you think, act, and feel. What happens after screening? If you have symptoms of depression, your doctor will talk to you about your options. Doctors usually treat depression with medicines or counseling. Often, combining the two works best.Many people don't get help because they think that they'll get over the depression on their own. But people with depression may not get better unless they get treatment. The cause of depression is not well understood. There may be many factors involved. But if you havedepression, it's not your fault. A serious symptom of depression is thinking about or suicide. If you or someone you care about talks about this or about feeling hopeless, get help right away. It's important to know that depression can be treated. Medicine, counseling, and self-care may help. Where can you learn more? Go to https://www.[employer].net/patiented Enter T185 in the search box to learn more about Learning About Depression Screening. Current as of: April 13, 2023?Content Version: 14.0 ?? [email or web address]. Care instructions adapted under license by your healthcare professional. If you have questions about a medical condition or this instruction, always ask your healthcare professional. [employer] disclaims any warranty or liability for your use of this information. documented in this encounter Progress Notes * John Kelley PA-C - 04/29/2024 10:30 AM CDT Preventive Care Visit [facility] John Kelley PA-C, Family Medicine Apr 29, 2024 Assessment & Plan Routine general medical examination at a health care facility Reviewed personal and family history. Reviewed age appropriate screenings. Reviewed healthy BP and BMI ranges. Counseled on lifestyle modifications for optimal mental and physical health. Discussed age-appropriate health maintanence. Recommended any needed vaccinations. Continue to focus on well bal anced diet and exercise - Lipid panel reflex to direct LDL Fasting; Future - Comprehensive metabolic panel (BMP + Alb, Alk Phos, ALT, AST, Total. Bili, TP); Future - Lipid panel reflex to direct LDL Fasting - Comprehensive metabolic panel (BMP + Alb, Alk Phos, ALT, AST, Total. Bili, TP) Pre-diabetes Checking labs today. Patient is unable to get Ozempic after being on it x 1.5 years. Checking into options. We did discuss the possibility of using the compounding version with [facility]. She will letme know. - HEMOGLOBIN A1C; Future - Comprehensive metabolic panel (BMP + Alb, Alk Phos, ALT, AST, Total. Bili, TP); Future - Insulin level; Future - HEMOGLOBIN A1C - Comprehensive metabolic panel (BMP + Alb, Alk Phos, ALT, AST, Total. Bili, TP) - Insulin level Severe episode of recurrent major depressive disorder, without psychotic features (H) Mood stable, having some life stressors but overall doing well. Refilling. - escitalopram (LEXAPRO) 20 MG tablet; Take 1 tablet (20 mg) by mouth daily Class 1 obesity with serious comorbidity and body mass index (BMI) of 30.0 to 30.9 in adult, unspecified obesity type - Insulin level; Future - Insulin level Visit for screening mammogram - MA Diagnostic Digital Bilateral; Future Patient has been advised of split billing requirements and indicates understanding: Yes BMI Estimated body mass index is 30.46 kg/m?? as calculated from the following: Height as of this encounter: 1.727 m (5' 8). Weight as of this encounter: 90.9 kg (200 lb 4.8 oz). Weight management plan: Discussed healthy diet and exercise guidelines Counseling Appropriate preventive services were discussed with this patient, including applicable screening asappropriate for fall prevention, nutrition, physical activity, Tobacco-use cessation, weight loss and cognition. Checklist reviewing preventive services available has been given to the patient. Reviewed patient's diet, addressing concerns and/or questions. She is at risk for lack of exercise and has been provided with information to increase physical activity for the benefit of her well-being. Patient is at risk for social isolation and has been provided with information about the benefit ofsocial connection. The patient's PHQ-9 score is consistent with moderate depression. She was provided with informationregarding depression. Andrea Jean is a 54 year old, presenting for the following: Physical and Recheck Medication 04/29/2024 10:15 AM Additional Questions Roomed by Shayy Anaya ([facility]) Accompanied by 04/29/2024 10:15 AM Patient Reported Additional Medications Patient reports taking the following new medications none Health Care Directive Patient does not have a Health Care Directive or Living Will: Discussed advance care planning with patient; however, patient declined at this time. HPI Pt. Would like to discuss about Ozempic as no longer is covered by my insurance Pt. Is fasting for today. Pt. Request for labs to be done today. See's an Elementary School Director- they did an appeal but was denied. Has gained back 10 lbs in a month. Went from 229# to 190# Two brothers with diabetes, one had a stroke Got muscle pain with crestor. Mood- life changes, selling property, is retiring. Has been out for about 10 days. Feels mood is doing ok overall. 04/29/2024 General Health How would you rate your overall physical health? (!) FAIR Feel stress (tense, anxious, or unable to sleep) Very much (!) STRESS CONCERN 04/29/2024 Nutrition Three or more servings of calcium each day? Yes Diet: Other If other, please elaborate: low carb How many servings of fruit and vegetables per day? (!) 0-1 How many sweetened beverages each day? 0-1 04/29/2024 Exercise Days per week of moderate/strenous exercise 1 day (!) EXERCISE CONCERN 04/29/2024 Social Factors Frequency of gathering with friends or relatives Never Worry food won't last until get money to buy more No Food not last or not have enough money for food? No Do you have housing? (Housing is defined as stable permanent housing and does not include staying ouside in a car, in a tent, in an abandoned building, in an overnight usp, or couch-surfing.) Yes Are you worried about losing your housing? No Lack of transportation? No Unable to get utilities (heat,electricity)? No (!) SOCIAL CONNECTIONS CONCERN 04/29/2024 Fall Risk Fallen 2 or more times in the past year? No Trouble with walking or balance? No 04/29/2024 Dental Dentist two times every year? Yes 04/29/2024 TB Screening Were you born outside of the [place]? Yes Today's PHQ-9 Score: 04/29/2024 10:07 AM PHQ-9 SCORE PHQ-9 Total Score MyChart 10 (Moderate depression) PHQ-9 Total Score 10 04/29/2024 Substance Use Alcohol more than 3/day or more than 7/wk Not Applicable Do you use any other substances recreationally? No Social History Tobacco Use Smoking status: Never Passive exposure: Never Smokeless tobacco: Never Vaping Use Vaping status: Never Used Substance Use Topics Alcohol use: No Alcohol/week: 0.0 standard drinks of alcohol Drug use: No Mammogram Screening - Mammogram every 1-2 years updated in Health Maintenance based on mutual decision making 04/29/2024 One time HIV Screening Previous HIV test? No 04/29/2024 STI Screening New sexual partner(s) since last STI/HIV test? No History of abnormal Pap smear: Status post hysterectomy with removal of cervix and no history of CIN2 or greater or cervical cancer. Health Maintenance and Surgical History updated. 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 Objective Exam BP 116/74 (BP Location: Right arm, Patient Position: Sitting, Cuff Size: Adult Regular) Pulse 69 Temp 98.3 ??F (36.8 ??C) Resp 15 Ht 1.727 m (5' 8) Wt 90.9 kg (200 lb 4.8 oz) LMP 11/16/2014 SpO2 92% BMI 30.46 kg/m?? Estimated body mass index is 30.46 kg/m?? as calculated from the following: Height as of this encounter: 1.727 m (5' 8). Weight as of this encounter: 90.9 kg (200 lb 4.8 oz). Physical Exam GENERAL: alert and no distress EYES: Eyes grossly normal to inspection, PERRL and conjunctivae and sclerae normal HENT: ear canals and TM's normal, nose and mouth without ulcers or lesions NECK: no adenopathy, no asymmetry, masses, or scars RESP: lungs clear to auscultation - no rales, rhonchi or wheezes CV: regular rate and rhythm, normal S1 S2, no S3 or S4, no murmur, click or rub, no peripheral edema ABDOMEN: soft, nontender, no hepatosplenomegaly, no masses and bowel sounds normal MS: no gross musculoskeletal defects noted, no edema SKIN: no suspicious lesions or rashes NEURO: Normal strength and tone, mentation intact and speech normal PSYCH: mentation appears normal, affect normal/bright Signed Electronically by: John Kelley PA-C Answers submitted by the patient for this visit: Patient Health Questionnaire (Submitted on 04/29/2024) If you checked off any problems, how difficult have these problems made it for you to do your work,take care of things at home, or get along with other people?: Somewhat difficult PHQ9 TOTAL SCORE: 10 documented in this encounter Plan of Treatment Scheduled Orders Name Type Priority Associated Diagnoses Orde r Schedule MA Diagnostic Digital Bilateral Imaging Routine Visit for screening mammogram Expected: 04/29/2024 (Approximate), Expires: 04/29/2025 documented as of this encounter Procedures Procedure Name Priority Date/Time Associated Diagnosis Comments INSULIN LEVEL Routine 04/29/2024 10:53 AM CDT Pre-diabetes Class 1 obesity with serious comorbidity and body mass index (BMI) of 30.0 to 30.9 in adult, unspecified obesity type LIPID REFLEX TO DIRECT LDL PANEL Routine 04/29/2024 10:53 AM CDT Routine general medical examination at a health care facility HEMOGLOBIN A1C Routine 04/29/2024 10:53 AM CDT Pre-diabetes COMPREHENSIVE METABOLIC PANEL Routine 04/29/2024 10:53 AM CDT Routine general medical examination at a health care facility Pre-diabetes documented in this encounter Results * Insulin level (04/29/2024 10:53 AM CDT) Insulin 11.0 2.6 - 24.9 uU/mL 04/30/2024 8:25 AM CDT [facility] Blood BLOOD SPECIMEN / Unknown Venipuncture / Unknown 04/29/2024 10:53 AM CDT 04/29/2024 10:53 AM CDT John Kelley PA-C LAB - BLOOD OR DERABLES [facility] [address] [facility], [address] [place] [address], [facility] * (ABNORMAL) Comprehensive metabolic panel (BMP [...] LAB - BLOOD OR DERABLES [facility] [address] [facility], [address] [place] [id number] * (ABNORMAL) Lipid panel reflex to [...] LAB - BLOOD OR DERABLES [facility] [address] [facility], [address] [place] [address] * HEMOGLOBIN A1C (04/29/2024 10:53 AM CDT) [facility] Hemoglobin A1C 5.5 0.0 - 5.6 % 04/29/2024 11:12 AM CDT LABORATORY Comment: Normal <5.7% Prediabetes 5.7-6.4% ?? Diabetes 6.5% or higher Note: Adopted from ADA consensus guidelines. Blood BLOOD SPECIMEN / Unknown Venipuncture / Unknown 04/29/2024 10:53 AM CDT 04/29/2024 10:53 AM CDT John Kelley PA-C LAB - BLOOD OR DERABLES LABORATORY [facility] [address] [facility] (no room number, 1st floor of clinic) [place] [id number], [facility] documented in this encounter Visit Diagnoses Diagnosis Routine general medical examination at a health care facility- Primary Pre-diabetes Other abnormal glucose Severe episode of recurrent major depressive disorder, without psychotic features (H) Class 1 obesity with serious comorbidity and body mass index (BMI) of 30.0 to 30.9 in adult, unspecified obesity type Visit for screening mammogram Other screening mammogram documented in this encounter Additional Health Concerns Assessment Noted Time PHQ-9 Depression Total Score: 10 024 10:07 AM CDT documented as of this encounter Care Teams Trimmer And Borer Machine Operator Relationship Specialty Start Date End Date John Kelley PA-C [address]1275 MEIR MARRO[address]IN [address] PCP - General Physician Feed Miller - Medical 12/15/19 Lizzie Shine, COURTNEY Personal Advocate & Liaison (PAL) 02/04/20 John Kelley PA-C 67537 MEIR MARROQUIN [address] Assigned PCP 03/02/23 documented as of this encounter
--- OUTSIDE RECORDS SUMMARY | 2024-07-20 15:02 | XMS_ITS | Encounter Summary ---
Author Organization [place] Address [address] [place] [address]. [place] [address] Care Team Providers Care Barrow Worker Name Role Phone John Kelley PA-C Primary Care Provider Lizzie Shine RN Unavailable Unavailable John Kelley PA-C Unavailable + [phone] Reason for Visit * Reason Onset Date Comments Medication Request 05/01/2024 Encounter Details Date Type Department Care Team (Late st Contact Info) Description 05/01/2024 My[facility] Medical Advice [address] [address] John Kelley PA-C [address] [place] [address] Medication Request Social History Tobacco Use Types Packs/Day Years [...] friends or re latives? Never 04/29/2024 Attends Gnosticism Services Not on file 04/29 Active Member of Clubs or Organizations Not on f ile 04/29/2024 Attends Club or Organization Meetings Not on jakob e 04/29/2024 Marital Status Not on file 04/29/2024 PHQ-2 Answer Date Recorded PHQ-2 Score 5 04/29/2024 [facility] [place] of Occupat ional Health - Occupational Stress [...] in an abandoned building, in an overnight residential, or couch-surfing.) Yes 04/29/2024 Are you worried [...] on file documented as of this encounter Miscellaneous Notes * Telephone Encounter - Caryl Lee RN - 05/05/2024 11:28 AM CDT Patient would like to use [facility] pharmacy. * Telephone Encounter - Carol Mitchell RN - 05/04/2024 11:34 AM CDT Pt calls. She said John is aware of the hypoglycemic episodes. She says she is on the semaglutide because she is insulin resistance. She says the semaglutide helps keep her blood sugars steady. documented in this encounter Plan of Treatment Not on file documented as of this encounter Visit Diagnoses Not on filedocumented in this encounter Additional Health Concerns Assessment Noted Time PHQ-9 Depression Total Score: 10 024 10:07 AM CDT documented as of this encounter Care Teams Barrow Worker Relationship Specialty Start Date End Date John Kelley PA-C 19795 ME[address] [address] PCP - General Physician Cell Builder - Medical 12/15/19 Lizzie Shine RN Personal Advocate & Liaison (PAL) 02/04/20 John Kelley PA-C 58228 MEIR M[place] [address] Assigned PCP 03/02/23 documented as of this encounter
--- OUTSIDE RECORDS SUMMARY | 2024-07-20 15:02 | XMS_ITS | Encounter Summary ---
Author Organization [place] Address [address] [place] [address] Care Team Providers Care Saw Maker Name Role Phone John Kelley PA-C Primary Care Provider Lizzie Shine RN Unavailable Unavailable John Kelley PA-C Unavailable + [phone] Encounter Details Date Type Department Care Team (Latest Contact Info) Description 05/28/2024 Travel Social History Tobacco Use Types Packs/Day Years [...] friends or re latives? Never 04/29/2024 Attends Oriental Orthodox Services Not on file 04/29 Active Member of Clubs or Organizations Not on f ile 04/29/2024 Attends Club or Organization Meetings Not on jakob e 04/29/2024 Marital Status Not on file 04/29/2024 PHQ-2 Answer Date Recorded PHQ-2 Score 5 04/29/2024 [facility] [place] of Occupat ional Health - Occupational Stress [...] in an abandoned building, in an overnight long-term, or couch-surfing.) Yes 04/29/2024 Are you worried [...] on file documented as of this encounter Plan of Treatment Not on file documented as of this encounter Visit Diagnoses Not on filedocumented in this encounter Additional Health Concerns Assessment Noted Time PHQ-9 Depression Total Score: 10 024 10:07 AM CDT documented as of this encounter Care Teams Saw Maker Relationship Specialty Start Date End Date John Kelley PA-C 76393 ME[address] [place] [address] PCP - General Physician Block Stacker - Medical 12/15/19 Lizzie Shine, COURTNEY Personal Advocate & Liaison (PAL) 02/04/20 John Kelley PA-C 40840 MEIR MARROQUIN [address] Assigned PCP 03/02/23 documented as of this encounter
--- OUTSIDE RECORDS SUMMARY | 2024-07-20 15:02 | XMS_ITS | Encounter Summary ---
Author Organization [place] Address [address] [place] [address]. [place] [address] Care Team Providers Care Insurance Verification Clerk Name Role Phone John Kelley PA-C Primary Care Provider Lizzie Shine RN Unavailable Unavailable Stacy Callahan MD Unavailable [phone] Ortega Martin DO Unavailable John Kelley PA-C Unavailable +[phone] Encounter Details Date Type Department Care Team (Late st Contact Info) Description 11/26/2022 [facility] Medical Advice [facility] Mental Health & Addiction [address] [address] Evan Carranza PsyD Social History Tobacco Use Types Packs/Day Years Used Date Smoking Tobacco: Never Passive Smoke Exposure: Never Smokeless Tobacco: Never Alcohol Use Standard Drinks/Week Comments No 0 (1 standard drink = 0.6 oz pur e alcohol) PHQ-2 Answer Date Recorded PHQ-2 Total Score (Adult) - Positive if 3 or more points; Administer PHQ-9 if positive 4 09/26/2022 Sex and Gender Information Value Date Recorded Sex Assigned at Not on file Gender Identity Not on file Sexual Orientation Not on file documented as of this encounter Plan of Treatment Not on file documented as of this encounter Visit Diagnoses Not on filedocumented in this encounter Additional Health Concerns Assessment Noted Time PHQ-9 Depression Total Score: 14 022 10:58 AM WAX BALL KNOCK OUT WORKER documented as of this encounter Care Teams Insurance Verification Clerk Relationship Specialty Start Date End Date John Kelley PA-C 58154 ME[address] M[place]IN [address] PCP - General Physician Hardboard Panel Printer - Medical 12/15/19 Lizzie Shine, COURTNEY Personal Advocate & Liaison (PAL) 02/04/20 Stacy Callahan MD Assigned Allergy Provider 04/14/22 10/11/23 Ortega Martin DO [address] [address] Assigned PCP 07/28/22 03/01/23 John Kelley PA-C 93476 MEIR MARR[address]QUIN [address] Assigned PCP 03/02/23 documented as of this encounter
--- OUTSIDE RECORDS SUMMARY | 2024-07-20 15:02 | XMS_ITS | Referral Summary ---
Author Organization [place] Address [address] [place] [address] Care Team Providers Care Hydrodynamics Teacher Name Role Phone John Kelley PA-C Primary Care Provider Lizzie Shine RN Unavailable Unavailable John Kelley PA-C Unavailable + [phone] Encounters Date Type Department Care Team Description 05/28/2024 Travel 05/28/2024 11:15 AM CDT Ancillary Procedure [facility] [address] [place] [phone] John Kelley PA-C Visit for screening mammogram 05/01/2024 MyC Medical Advice [facility] [address] [place] [phone] John Kelley PA-C Medication Request 04/30/2024 MyC Medical Advice [facility] [address] [place] [phone] John Kelley PA-C Medication Request ([facility]empic [facility]mg [facility] to [facility]... 04/29/2024 Travel 04/29/2024 10:30 AM CDT Office Visit [facility] [address] [place] [phone] John Kelley PA-C Routine general medical examination at a health care facility (Primary Dx); Pre-diabetes; Severe episode of recurrent major depressive disorder, without psychotic features (H); Class 1 obesity with serious comorbidity and body mass index (BMI) of 30.0 to 30.9 in adult, unspecified obesity type; Visit for screening mammogram from Last 3 Months Allergies Active Allergy Reactions Criticality Noted Date [...] (90 Base) MCG/ACT inhalerIndications :Infection due to 2018 novel coronavirus Inhale 2 puffs into the [...] 11/05/2012 Overview: Her history; notes dx in [place] Anxiety 01/17/2011 Vitamin D deficiency 12/02/2010 CARDIOVASCULAR [...] Major depression in complete remission 11/24/2010 01/17/2011 Immunizations Name Administration Dates Next Due Influenza (IIV3) PF 07/15/2014,10/31/2012,2010 MMR 08/22/2007,07/14/2007 Mantoux Tuberculin Skin Test 04/16/2017,12/11/19 14 TDAP (Adacel,Boostrix) 03/20/2011 TDAP Vaccine (Adacel) 03/21/2011 TDAP Vaccine (Boostrix) 03/30/2019 Tdap (Adult) Unspecified Formulation 03/20/2011, 04/19/2005 Varicella 08/22/2007,07/14/2007 Social History Tobacco Use Types Packs/Day Years [...] friends or re latives? Never 04/29/2024 Attends Sikh Services Not on file 04/29 Active Member of Clubs or Organizations Not on f ile 04/29/2024 Attends Club or Organization Meetings Not on jakob e 04/29/2024 Marital Status Not on file 04/29/2024 PHQ-2 Answer Date Recorded PHQ-2 Score 5 04/29/2024 [facility] [place] of Occupat ional Health - Occupational Stress [...] in an abandoned building, in an overnight [place] health care facility, or couch-surfing.) Yes 04/29/2024 Are you worried [...] 04/29/2024 10:18 AM CDT Plan of Treatment Not on file Procedures Procedure Name Priority Date/Time Associated Diagnosis [...] AM CDT COLONOSCOPY Routine 12/15/2019 12:47 PM [facility] ASTHMA CONTROL TEST - HIM SCAN Routine 11/24/2016 PAP IMAGED THIN LAYER SCREEN Routine 01/14/2015 12:00 AM CDT Routine General Medical Examination At A Health Care Facility HEPATITIS C ANTIBODY Routine 04/20/2014 [...] * Insulin level (04/29/2024 10:53 AM CDT) Pathologist [facility] Insulin 11.0 2.6 - 24.9 uU/mL 04/30/2024 8:25 AM CDT [facility] Blood BLOOD SPECIMEN / Unknown Venipuncture / Unknown 04/29/2024 10:53 AM CDT 04/29/2024 10:53 AM CDT John Kelley PA-C LAB - BLOOD OR DERABLES [facility] [facility] [address] [facility], [address] [place] [phone] * (ABNORMAL) Lipid panel reflex to direct [...] Kelley PA-C LAB - BLOOD OR DERABLES Performing Organization Address City/State/[facility] Co de Phone Number [facility] [place] [address] [facility], [address] [phone] * HEMOGLOBIN A1C (04/29/2024 10:53 AM CDT) Hemoglobin A1C 5.5 0.0 - 5.6 % 04/29/2024 11:12 AM CDT LABORATORY Comment: Normal <5.7% Prediabetes 5.7-6.4% ?? Diabetes 6.5% or higher Note: Adopted from ADA consensus guidelines. Blood BLOOD SPECIMEN / Unknown Venipuncture / Unknown 04/29/2024 10:53 AM CDT 04/29/2024 10:53 AM CDT John Kelley PA-C LAB - BLOOD OR DERABLES LABORATORY [facility] [address] [facility] Lab (no room number, 1st floor of clinic) [place] [address], [facility] * (ABNORMAL) Comprehensive metabolic panel (BMP [...] 8:25 AM CDT [facility] Comment:eGFR calculated usin 2020 CKD-EPI equation. Calcium 9.7 8.6 - 10.0 [...] LAB - BLOOD OR DERABLES [facility] [address] [facility], [address] [place] [address] * Albumin Random Urine Quantitative with Creat [...] control, and institution of therapy with an eshfhsventb-iwwmtjgpqm-rxjnej (ANEUDY) inhibitor (if the patient can tolerate it). ?? Urine URINE SPECIMEN / Unknown Non-blood Collection / Unknown 02/21/2023 2:01 PM CDT 02/21/2023 2:01 PM CDT John Kelley PA-C LAB - URINE OR DERABLES LABORATORY [facility] [address] [facility], [address] [phone] [phone] * EYE EXAM - HIM SCAN (08/10/2022 12:00 AM CDT) RETINOPATHY NEGATIVE 08/10/2022 Narrative Ethel Max - 08/10/2022 12:00 AM CDT EYE EXAM FAMILY VISION Provider Outside OTHER * COLONOSCOPY (12/15/2019 12:47 PM [facility]) COLONOSCOPY [facility] Patient Name: Miranda Scott ?Procedure Date: [...] and ?oxygen saturations were monitored continuously. The ?Olympus Pediatric Colonoscope, Model # PCF-H190DL, ?Endora # 216, SN # [id number] was introduced through ?the anus and advanced to the cecum, identified by ?appendiceal orifice and ileocecal valve. The ?Olympus Adult Colonoscope, Model # CF-OT044F, ?Endora # 224, SN # [id number] was introduced through ?the and advanced to. [...] malignant neoplasm of colon CPT copyright 2018 [employer]. All rights reserved. The codes documented in this report are preliminary and upon head filter press tender review may be revised to meet current compliance requirements. Electronically signed by Ricki Thornton MD __ Ricki Thornton MD 12/15/2019 1:42:45 PM I was physically present for the entire viewing portion of the exam. Ricki Thornton MD Number of Addenda: 0 Note Initiated On: 12/15/2019 12:47 PM MRN: ?[id number] Procedure Date: ? 12/15/2019 12:47:39 PM Scope Withdrawal Time: 0 hours 6 minutes 18 seconds Total Procedure Duration: 0 hours 45 minutes 33 seconds Estimated Blood Loss: ? Scope In: 12:53:17 PM Scope Out: 1:38:50 PM RADIOLOGY RESULTS 12/15/2019 12:4 7 PM [facility] John Kelley PA-C PROCEDURES RADIOLOGY RESULTS * Asthma Control Test - HIM Scan (11/24/2016) ASTHMA HOSPITALIZATIONS 0 ASTHMA ER 0 ACT SCORE 6 Narrative Hazel Bo - 11/24/2016 [facility], PROGRESS NOTE Provider Outside PFT ORDERABLES * PAP imaged thin layer, screen (01/14/2015 12:00 AM CDT) PAP NIL COPATH Copath Report Patient Name: MIRANDA SCOTT MR#: [id number] Specimen #: [id number] Collected: 01/14/2015 Received: 01/17/2015 Reported: 01/18/2015 11:43 [...] DEDE Hazel (ASCP) Processed and screened at [facility] CLINICAL HISTORY: Previous normal pap Date of Last Pap: 11/05/12, Papanicolaou Test Limitations: ??Cervical cytology is a screening test with limited sensitivity; regular screening is critical for cancer prevention; Pap tests are primarily effective for the diagnosis/preventi on of squamous cell carcinoma, not adenocarcinomas or other cancers. TESTING LAB LOCATION: [address] ??[phone] COLLECTION SITE: Client: ??[facility] Location: FP (R) COPATH Cytologic material (specimen) 01/14/2015 01/17/2015 11:14 AM CDT Alba Vu MD LAB - OPTIME CLINICA L SPECIMEN COPATH * Hepatitis C antibody (04/20/2014 2:53 PM CDT) Hepatitis C Antibody Negative NEG [facility] Blood specimen (specimen) 04/20/2014 2:53 PM CDT 04/20/2014 2:54 PM CDT Alba Vu MD LAB - BLOOD ORDERABL ES [facility] from Last 3 Months or Most Recently Relevant to Health Maintenance Care Teams Hydrodynamics Teacher Relationship Specialty Start Date End Date John Kelley PA-C [address] MEIR MARROQUIN [address] PCP - General Physician Golf Course Manager - Medical 12/15/19 Lizzie Shine, COURTNEY Personal Advocate & Liaison (PAL) 02/04/20 John eKlley PA-C 11886 MEIR MARROQUIN [address] Assigned PCP 03/02/23
--- OUTSIDE RECORDS SUMMARY | 2024-07-20 15:02 | XMS_ITS | Encounter Summary ---
Author Organization [place] Address [address] [place] [address] Care Team Providers Care Electrician Telephone Name Role Phone John Kelley PA-C Primary Care Provider Lizzie Shine RN Unavailable Unavailable John Kelley PA-C Unavailable + [phone] Encounter Details Date Type Department Care Team (Late st Contact Info) Description 03/11/2024 [facility] Medical Advice [facility] [address] [place] [address] Karina Noel Social History Tobacco Use Types Packs/Day Years Used Date Smoking Tobacco: Never Passive Smoke Exposure: Never Smokeless Tobacco: Never Alcohol Use Standard Drinks/Week Comments No 0 (1 standard drink = 0.6 oz pur e alcohol) PHQ-2 Answer Date Recorded PHQ-2 Score 2 02/20/2023 Adolescent Education Answer Date Record ed Getting School Help Needed Not on file 07/12 Sex and Gender Information Value Date Recorded Sex Assigned at Not on file Gender Identity Not on file Sexual Orientation Not on file documented as of this encounter Plan of Treatment Not on file documented as of this encounter Visit Diagnoses Not on filedocumented in this encounter Additional Health Concerns Assessment Noted Time PHQ-9 Depression Total Score: 5 02/21/20 23 2:27 PM CDT documented as of this encounter Care Teams Electrician Telephone Relationship Specialty Start Date End Date John Kelley PA-C [address] [place], [place] [phone] PCP - General Physician Head Boys Golf Coach - Medical 12/15/19 Lizzie Shine, COURTNEY Personal Advocate & Liaison (PAL) 02/04/20 John Kelley PA-C 81540 MEIR MARROQUIN [phone] Assigned PCP 03/02/23 documented as of this encounter
--- OUTSIDE RECORDS SUMMARY | 2024-07-20 15:02 | XMS_ITS | Encounter Summary ---
Author Organization [facility] Address [address] [place] [address]. [place] [address] Care Team Providers Care Product Development Director Name Role Phone John Kelley PA-C Primary Care Provider Lizzie Shine RN Unavailable Unavailable Stacy Callahan MD Unavailable [phone] Ortega Martin DO Unavailable John Kelley PA-C Unavailable [phone] Encounter Details Date Type Department Care Team (Late st Contact Info) Description 11/26/2022 MyC Medical Advice [facility] Mental Health & Addiction [address] [address] [place] [address] [place] [address] Social History Tobacco Use Types Packs/Day Years [...] Depression Total Score: 14 022 10:58 AM MANAGEMENT LECTURER documented as of this encounter Care Teams Product Development Director Relationship Specialty Start Date End Date John Kelley PA-C [address]89[address] ME[address] M[address]IN [address] PCP - General Physician Emergency Department Aide - Medical 12/15/19 Lizzie Shine RN Personal Advocate & Liaison (PAL) 02/04/20 Stacy Callahan MD Assigned Allergy Provider 04/14/22 10/11/23 Ortega Martin DO [address] [address] Assigned PCP 07/28/22 03/01/23 John Kelley PA-C [address]96[address] MEIR MARROQUIN [address] Assigned PCP 03/02/23 documented as of this encounter
--- OUTSIDE RECORDS SUMMARY | 2024-07-20 15:02 | XMS_ITS | Encounter Summary ---
Author Organization [place] Address [address] [place] [address] Care Team Providers Care Remanufacturing Technician Name Role Phone John Kelley PA-C Primary Care Provider Lizzie Shine RN Unavailable Unavailable Stacy Callahan MD Unavailable [phone] Ortega Martin DO Unavailable John Kelley PA-C Unavailable + [phone] Encounter Details Date Type Department Care Team (Late st Contact Info) Description 09/11/2022 MyC Medical Advice [address] [address] Seble Valerio Social History Tobacco Use Types Packs/Day Years Used Date Smoking Tobacco: Never Smokeless Tobacco: Never Alcohol Use Standard Drinks/Week Comments No 0 (1 standard drink = 0.6 oz pur e alcohol) PHQ-2 Answer Date Recorded PHQ-2 Score 1 01/25/2021 Sex and Gender Information Value Date Recorded Sex Assigned at Not on file Gender Identity Not on file Sexual Orientation Not on file documented as of this encounter Plan of Treatment Not on file documented as of this encounter Visit Diagnoses Not on filedocumented in this encounter Additional Health Concerns Assessment Noted Time PHQ-9 Depression Total Score: 14 09/26/ 022 10:58 AM EATING DISORDER SPECIALIST documented as of this encounter Care Teams Remanufacturing Technician Relationship Specialty Start Date End Date John Kelley PA-C 250[address] MEIR MARROQUIN [address] PCP - General Physician Hr Leader - Medical 12/15/19 Lizzie Shine, COURTNEY Personal Advocate & Liaison (PAL) 02/04/20 Stacy Callahan MD Assigned Allergy Provider 04/14/22 10/11/23 Ortega Martin DO [address] [address] Assigned PCP 07/28/22 03/01/23 John Kelley PA-C [address]78 MEIR MARROQUIN [address] Assigned PCP 03/02/23 documented as of this encounter
--- OUTSIDE RECORDS SUMMARY | 2024-07-20 15:02 | XMS_ITS | Encounter Summary ---
Author Organization [place] Address [address] [place] [address]. [place] [address] Care Team Providers Care Manager Zone Name Role Phone John Kelley PA-C Primary Care Provider Lizzie Shine RN Unavailable Unavailable John Kelley PA-C Unavailable + [phone] Reason for Visit * Reason Onset Date Comments Refill Request 12/16/2023 Encounter Details Date Type Department Care Team (Late st Contact Info) Description 12/16/2023 [place] Gill [address] [address] Stacy Callahan MD [address] [facility] [address] [place] [address] Refill Request Social History Tobacco Use Types Packs/Day [...] encounter Miscellaneous Notes * Telephone Encounter - Celina Thorpe RN - 12/16/2023 10:22 AM RECONCILIATION CLERK Needs appt NCILIATION CLERK documented in this encounter Plan of Treatment Not on file documented as of this encounter Visit Diagnoses Diagnosis Moderate persistent asthma without complication Unspecified asthma documented in this encounter Additional Health Concerns Assessment Noted Time PHQ-9 Depression Total Score: 5 02/21/20 23 2:27 PM CDT documented as of this encounter Care Teams Manager Zone Relationship Specialty Start Date End Date John Kelley PA-C [address]79[address] ME[address] MARR[place]IN [address] PCP - General Physician Sales Data Analyst - Medical 12/15/19 Lizzie Shine, COURTNEY Personal Advocate & Liaison (PAL) 02/04/20 John Kelley PA-C 10689 ME[place] MARR[place] [address] Assigned PCP 03/02/23 documented as of this encounter
--- OUTSIDE RECORDS SUMMARY | 2024-07-20 15:02 | XMS_ITS | Encounter Summary ---
Author Organization [place] Address [address] [place] [address]. [place] [address] Care Team Providers Care Cardiology Clinical Consultant Name Role Phone John Kelley PA-C Primary Care Provider Lizzie Shine RN Unavailable Unavailable John Kelley PA-C Unavailable + [phone] Reason for Visit * Diagnostic Imaging Mammo (Routine) - Pending Review Specialty Diagnoses / Procedures Referred By Ирина ayers Referred To Contact Radiology. Diagnoses Visit for screening mammogram Procedures MA Screen Bilateral w/John Whatley PA-C [address] [place] [address] Referral ID Status Reason Start Date Expiration Date V isits Requested Visits Authorized [id number] Pending Review 05/22/2024 05/22/2025 1 1 Encounter Details Date Type Department Care Team (Latest Contact Info) Description 05/28/2024 11:15 AM CDT Ancillary Procedure [address] [address] John Kelley PA-C [address] [place], [place] [phone] Visit for screening mammogram Social History Tobacco [...] friends or re latives? Never 04/29/2024 Attends Congregation Services Not on file 04/29 Active Member of Clubs or Organizations Not on f ile 04/29/2024 Attends Club or Organization Meetings Not on jakbo e 04/29/2024 Marital Status Not on file 04/29/2024 PHQ-2 Answer Date Recorded PHQ-2 Score 5 04/29/2024 [facility] of Occupat ional Health - Occupational Stress [...] Date Recorded Do you have housing? (Summer g is defined as stable permanent housing and does not include staying ouside in a car, in a tent, in an abandoned building, in an overnight group home, or couch-surfing.) Yes 04/29/2024 Are you worried [...] on file documented as of this encounter Procedures Procedure Name Priority Date/Time Associated Diagnosis Comments MA SCREENING BILATERAL W/ LUIS ANGEL Routine 05/28/2024 11:07 AM CDT Visit for screening mammogram documented in this encounter Results * MA Screen Bilateral w/Luis Angel [...] John Kelley PA-C IMG MAMMOGRAPH Y ORDERABLES documented in this encounter Visit Diagnoses Diagnosis Visit for screening mammogram Other screening mammogram documented in this encounter Additional Health Concerns Assessment Noted Time PHQ-9 Depression Total Score: 10 024 10:07 AM CDT documented as of this encounter Care Teams Cardiology Clinical Consultant Relationship Specialty Start Date End Date John Kelley PA-C [address] [facility] [place] [address] PCP - General Physician Catering Chef - Medical 12/15/19 Lizzie Shine RN Personal Advocate & Liaison (PAL) 02/04/20 John Kelley PA-C [address] [place] [address] Assigned PCP 03/02/23 documented as of this encounter
--- OUTSIDE RECORDS SUMMARY | 2024-07-20 15:02 | XMS_ITS | Encounter Summary ---
Author Organization [facility] Address [address] [place] [address]. [place] [address] Care Team Providers Care Loss Prevention Officer Name Role Phone John Kelley PA-C Primary Care Provider Lizzie Shine RN Unavailable Unavailable John Kelley PA-C Unavailable + [phone] Reason for Visit * Reason Comments Medication Refill Encounter Details Date Type Department Care Team (Late st Contact Info) Description 03/11/2024 Refill [facility] [address] [place] [address] John Kelley PA-C [address] [place] [address] Medication Refill Social History Tobacco Use Types Packs/Day Years [...] encounter Miscellaneous Notes * Telephone Encounter - Karina Noel - 03/11/2024 4:10 PM CDT LVM, sent MCM & mailed letter per protocol. Karina Flores Improvement Leader * Telephone Encounter - John Kelley PA-C - 03/11/2024 3:48 PM CDT From a note in November: Overdue for physical and many HM items as well as med check. Please help schedule. One time refill today only. Needs in person med check and physical. Let me know if scheduled, I can probably fill until appointment. John documented in this encounter Plan of Treatment Not on file documented as of this encounter Visit Diagnoses Diagnosis Severe episode of recurrent major depressive disorder, without psychotic features (H) documented in this encounter Additional Health Concerns Assessment Noted Time PHQ-9 Depression Total Score: 5 02/21/20 23 2:27 PM CDT documented as of this encounter Care Teams Loss Prevention Officer Relationship Specialty Start Date End Date John Kelley PA-C [address] [address] [address] PCP - General Physician Atv Mechanic - Medical 12/15/19 Lizzie Shine, COURTNEY Personal Advocate & Liaison (PAL) 02/04/20 John Kelley PA-C [address]175 [place] [address] Assigned PCP 03/02/23 documented as of this encounter
--- OUTSIDE RECORDS SUMMARY | 2024-07-20 15:02 | XMS_ITS | Encounter Summary ---
Author Organization [facility] Address [address] [place] [address] Care Team Providers Care Steamer Blocker Name Role Phone John Kelley PA-C Primary Care Provider Lizzie Shine RN Unavailable Unavailable John Kelley PA-C Unavailable + [phone] Encounter Details Date Type Department Care Team (Latest Contact Info) Description 04/29/2024 Travel Social History Tobacco Use Types Packs/Day [...] friends or re latives? Never 04/29/2024 Attends Taoism Services Not on file 04/29 Active Member of Clubs or Organizations Not on f ile 04/29/2024 Attends Club or Organization Meetings Not on jakob e 04/29/2024 Marital Status Not on file 04/29/2024 PHQ-2 Answer Date Recorded PHQ-2 Score 5 04/29/2024 [facility] [place] of Occupat ional Health - Occupational Stress [...] in an abandoned building, in an overnight custodial, or couch-surfing.) Yes 04/29/2024 Are you worried [...] documented as of this encounter Care Teams Steamer Blocker Relationship Specialty Start Date End Date John Kelley PA-C [address] [address] [address] PCP - General Physician Tool Operator - Medical 12/15/19 Lizzie Shine, COURTNEY Personal Advocate & Liaison (PAL) 02/04/20 John Kelley PA-C [address] [address] [address] [address] Assigned PCP 03/02/23 documented as of this encounter
--- OUTSIDE RECORDS SUMMARY | 2024-07-20 15:02 | XMS_ITS | Encounter Summary ---
Author Organization [facility] Address [address] [place] [address]. [place] [address] Care Team Providers Care Nurse Rn Bsn Name Role Phone John Kelley PA-C Primary Care Provider Lizzie Shine RN Unavailable Unavailable John Kelley PA-C Unavailable + [phone] Encounter Details Date Type Department Care Team (Late st Contact Info) Description 12/09/2023 [facility] [address] [place] [address] Ann Marie Chance Social History Tobacco Use Types Packs/Day Years [...] documented as of this encounter Care Teams Nurse Rn Bsn Relationship Specialty Start Date End Date John Kelley PA-C [address] [place] [address] PCP - General Physician Director Of Quality Control - Medical 12/15/19 Lizzie Shine, COURTNEY Personal Advocate & Liaison (PAL) 02/04/20 John Kelley PA-C [address]65 [place] [address] [id number] Assigned PCP 03/02/23 documented as of this encounter
--- OUTSIDE RECORDS SUMMARY | 2024-07-20 15:02 | XMS_ITS | Encounter Summary ---
Author Organization [facility] Address [address] [place] [address]. [place] [address] Care Team Providers Care Wire Stitcher Name Role Phone John Kelley PA-C Primary Care Provider Lizzie Shine RN Unavailable Unavailable John Kelley PA-C Unavailable + [phone] Reason for Visit * Reason Onset Date Comments Medication Request 04/30/2024 Ozempic 1mg s end to [facility]. Encounter Details Date Type Department Care Team (Late st Contact Info) Description 04/30/2024 My[facility] Medical Advice [facility] [address] [place] [address] John Kelley PA-C [address] [place] [address] Medication Request ([facility] to [facility]... Social History Tobacco Use Types Packs/Day Years [...] friends or re latives? Never 04/29/2024 Attends Judaism Services Not on file 04/29 Active Member of Clubs or Organizations Not on f ile 04/29/2024 Attends Club or Organization Meetings Not on jakob e 04/29/2024 Marital Status Not on file 04/29/2024 PHQ-2 Answer Date Recorded PHQ-2 Score 5 04/29/2024 [facility] of Occupat ional Health - Occupational Stress [...] in an abandoned building, in an overnight retirement, or couch-surfing.) Yes 04/29/2024 Are you worried [...] encounter Miscellaneous Notes * Telephone Encounter - John Kelley PA-C - 05/06/2024 9:39 AM CDT Sorry for the delay. I was out of office. The Rx is sent in. 90 days with a refill. John * Telephone Encounter - Caryl Lee RN - 05/01/2024 3:42 PM CDT Patient calling back to inquire on status of request. Last injection was 3 weeks ago. Has gained 7lbs. Caryl Lee RN * Telephone Encounter - Caryl Lee RN - 05/01/2024 11:49 AM CDT Patient would like to have prescription for Ozempic 1mg sent to [facility] pharmacy. Thisis what she can afford for now. Would like 3 months at a time. Caryl Lee RN documented in this encounter Plan of Treatment Not on file documented as of this encounter Visit Diagnoses Diagnosis Class 1 obesity with serious comorbidity and body mass index (BMI) of 30.0 to 30.9 in adult, unspecified obesity type- Primary documented in this encounter Additional Health Concerns Assessment Noted Time PHQ-9 Depression Total Score: 10 024 10:07 AM CDT documented as of this encounter Care Teams Wire Stitcher Relationship Specialty Start Date End Date John Kelley PA-C [address] [address] [place] [address] PCP - General Physician Rubber Worker - Medical 12/15/19 Lizzie Shine RN Personal Advocate & Liaison (PAL) 02/04/20 John Kelley PA-C [address] [address] [place] [address] Assigned PCP 03/02/23 documented as of this encounter
--- OUTSIDE RECORDS SUMMARY | 2024-07-20 15:02 | XMS_ITS | Encounter Summary ---
Author Organization [facility] Address [address] [place] [address] Care Team Providers Care Ceramics Instructor Name Role Phone John Kelley PA-C Primary Care Provider Lizzie Shine RN Unavailable Unavailable Stacy Callahan MD Unavailable +[phone] Ortega Martin DO Unavailable John Kelley PA-C Unavailable + [phone] Encounter Details Date Type Department Care Team (Late st Contact Info) Description 10/25/2022 My[facility] Medical Advice [address] [address] Ashley Landry RN Social History Tobacco Use Types Packs/Day Years [...] on file Sexual Orientation Not on file COVID-19 Exposure Response Date Recorded In the last 10 days, have yo u been in contact with someone who was confirmed or suspected to have Coronavirus/COVID-19? No / Unsure 09/27/2022 12:27 PM SUPERVISOR REMELT documented as of this encounter Plan of Treatment Not on file documented as of this encounter Visit Diagnoses Not on filedocumented in this encounter Additional Health Concerns Assessment Noted Time PHQ-9 Depression Total Score: 14 022 10:58 AM SUPERVISOR REMELT documented as of this encounter Care Teams Ceramics Instructor Relationship Specialty Start Date End Date John Kelley PA-C [address] [address] [address] PCP - General Physician Gas Appliance Servicer Helper - Medical 12/15/19 Lizzie Shine RN Personal Advocate & Liaison (PAL) 02/04/20 Stacy Callahan MD Assigned Allergy Provider 04/14/22 10/11/23 Ortega Martin DO [address] [address] Assigned PCP 07/28/22 03/01/23 John Kelley PA-C [address] [place] [address] Assigned PCP 03/02/23 documented as of this encounter
--- OUTSIDE RECORDS SUMMARY | 2024-07-20 15:03 | XMS_ITS | Encounter Summary ---
Author Organization [facility] Address [address] [place] [address] Care Team Providers Care Cloth Washer Operator Name Role Phone Macrina Purvis MD Primary Care Provider + John Kelley PA-C Unavailable + Natasha Hroner APRN REGIONAL SALES TRAINER Unavailable + John Kelley PA-C Unavailable + John Kelley PA-C Primary Care Provider + Lizzie Shine RN Unavailable Unavailable John Kelley PA-C Unavailable + John Kelley PA-C Unavailable + Stacy Callahan MD Unavailable +[phone] Ortega Martin DO Unavailable John Kelley PA-C Unavailable + Encounter Details Date Type Department Care Team (Late st Contact Info) Description 02/10/2019 MyC Medical Advice [facility] [id number] [place] [address], [address] [place] [address] Sara Patterson MA Social History Tobacco Use Types Packs/Day Years Used Date Smoking Tobacco: Never Smokeless Tobacco: Never Alcohol Use Standard Drinks/Week Comments No 0 (1 standard drink = 0.6 oz pur e alcohol) PHQ-2 Answer Date Recorded PHQ-2 Score 0 10/29/2018 Sex and Gender Information Value Date Recorded Sex Assigned at Not on file Gender Identity Not on file Sexual Orientation Not on file documented as of this encounter Plan of Treatment Not on file documented as of this encounter Visit Diagnoses Not on filedocumented in this encounter Additional Health Concerns Infection Onset Date Last Indicated Resolved Time COVID-19 Comment:02/26/2022- Patient reports positive test on 02/23/22. Darlin Gao, Infection Prevention. 02/23/2022 02/26/2022 11:41 PM CDT Rule Out COVID-19 07/16/2022 07/16/2022 08/06/2022 11:39 PM CDT Assessment Noted Time PHQ-9 Depression Total Score: 13 019 9:21 AM ROLLER EMBOSSER documented as of this encounter Care Teams Cloth Washer Operator Relationship Specialty Start Date End Date Macrina Purvis MD PCP - General Family Practice 09/04/15 12/14/19 John Kelley PA-C [address] [address] [id number] PCP - General Physician Surgery Attendant - Medical 12/15/19 John Kelley PA-C 11986 [place] [id number] Assigned PCP 10/27/17 04/11/19 Natasha Horner APRN CNP [address] [address] [id number] Assigned PCP 04/12/19 04/18/19 John Kelley PA-C [address] [address] [address] [id number] Assigned PCP 04/19/19 06/11/20 Lizzie Shine, RN Personal Advocate & Liaison (PAL) 02/04/20 John Kelley PA-C [address] [place] [address] Assigned PCP 06/12/20 02/04/21 John Kelley PA-C [address] [place] [address] Assigned PCP 02/05/21 07/27/22 Stacy Callahan MD Assigned Allergy Provider 04/14/22 10/11/23 Ortega Martin DO [address] [address] Assigned PCP 07/28/22 03/01/23 John Kelley PA-C [address] [place] [address] Assigned PCP 03/02/23 documented as of this encounter
--- OUTSIDE RECORDS SUMMARY | 2024-07-20 15:03 | XMS_ITS | Encounter Summary ---
Author Organization [facility] Address [address] [place] [address] Care Team Providers Care Er Registrar Name Role Phone Macrina Purvis MD Primary Care Provider + John Kleley PA-C Unavailable + John Kelley PA-C Primary Care Provider + Lizzie Shine RN Unavailable Unavailable John Kelley PA-C Unavailable + John Kelley PA-C Unavailable + Stacy Callahan MD Unavailable [phone] Ortega Martin DO Unavailable John Kelley PA-C Unavailable + Encounter Details Date Type Department Care Team (Late st Contact Info) Description 05/05/2019 MyC Medical Advice [facility] [address] [facility], [address] [place] [address] Sheila Ortiz, RN Social History Tobacco Use Types Packs/Day [...] Assessment Noted Time PHQ-9 Depression Total Score: 18 019 8:18 AM CDT documented as of this encounter Care Teams Er Registrar Relationship Specialty Start Date End Date Macrina Purvis MD PCP - General Family Practice 09/04/15 12/14/19 John Kelley PA-C [address] [place] [address] PCP - General Physician Anthropology And Archeology Instructor - Medical 12/15/19 John Kelley PA-C [address] [place] [address] Assigned PCP 04/19/19 06/11/20 Lizzie Shine RN Personal Advocate & Liaison (PAL) 02/04/20 John Kelley PA-C [address] [place] [address] Assigned PCP 06/12/20 02/04/21 John Kelley PA-C [address] [place], [place] [id number] Assigned PCP 02/05/21 07/27/22 Stacy Callahan MD Assigned Allergy Provider 04/14/22 10/11/23 Ortega Martin DO [address] [address] Assigned PCP 07/28/22 03/01/23 John Kelley PA-C [address] [place] [address] Assigned PCP 03/02/23 documented as of this encounter
--- OUTSIDE RECORDS SUMMARY | 2024-07-20 15:03 | XMS_ITS | Encounter Summary ---
Author Organization [facility] Address [address] [place] [address] Care Team Providers Care Greens Cutter Name Role Phone John Kelley PA-C Primary Care Provider Lizzie Shine RN Unavailable Unavailable John Kelley PA-C Unavailable [phone] Stacy Callahan MD Unavailable [phone] Ortega Martin DO Unavailable John Kelley PA-C Unavailable + [phone] Encounter Details Date Type Department Care Team (Late st Contact Info) Description 02/27/2022 MyC Medical Advice [facility] [address] [address] Twyla Calvillo MD [facility] [place], [place] [id number] Social History Tobacco Use Types Packs/Day Years [...] was confirmed or suspected to have Coronavirus/COVID-19? Yes 02/26/2022 8:19 AM CDT documented as of this encounter Plan of [...] Assessment Noted Time PHQ-9 Depression Total Score: 1 08/01/20 7:02 AM CDT documented as of this encounter Care Teams Greens Cutter Relationship Specialty Start Date End Date John Kelley PA-C [address] [address] [address] PCP - General Physician Interpreter - Medical 12/15/19 Lizzie Shine, COURTNEY Personal Advocate & Liaison (PAL) 02/04/20 John Kelley PA-C 75[address] [place] [address] Assigned PCP 02/05/21 07/27/22 [place] [address] [place] [address] Assigned Allergy Provider 04/14/22 10/11/23 Ortega Martin DO [address] [address] Assigned PCP 07/28/22 03/01/23 John Kelley PA-C [address] [place] [address] Assigned PCP 03/02/23 documented as of this encounter
--- OUTSIDE RECORDS SUMMARY | 2024-07-20 15:03 | XMS_ITS | Encounter Summary ---
Author Organization [facility] Address [address] [place] [address]. [place] [address] Care Team Providers Care Senior Telecommunications Specialist Name Role Phone John Kelley PA-C Unavailable [phone] John Kelley PA-C Primary Care Provider Lizzie Shine RN Unavailable Unavailable John Kelley PA-C Unavailable [phone] John Kelley PA-C Unavailable [phone] Stacy Callahan MD Unavailable [phone] Ortega Martin DO Unavailable John Kelley PA-C Unavailable + [phone] Reason for Visit * Reason Comments Medication Refill Encounter Details Date Type Department Care Team (Late st Contact Info) Description 06/07/[address] [facility], [address] [place] [address] John Kelley PA-C [address] [place] [address] Medication Refill Social History Tobacco Use Types Packs/Day Years Used Date Smoking Tobacco: Never Smokeless Tobacco: Never Alcohol Use Standard Drinks/Week Comments No 0 (1 standard drink = 0.6 oz pur e alcohol) PHQ-2 Answer Date Recorded PHQ-2 Score 0 06/10/2020 Sex and Gender Information Value Date Recorded Sex Assigned at Not on file Gender Identity Not on file Sexual Orientation Not on file documented as of this encounter Miscellaneous Notes * Telephone Encounter - Gianfranco Smalls RN - 06/08/2020 10:57 AM CDT Patient reports she has not been taking the amitriptyline daily - only prn when pain exceeds what tylenol can fix for her. She states it makes her feel drowsy into the next day. PHQ-9 and NOVA sent via [employer] for patient to fill out. Gianfranco Alfred RN * Telephone Encounter - John Kelley PA-C - 06/08/2020 10:24 AM CDT Please call to update PHQ and NOVA. We added Elavil last month. See if helpful for her. I can refillher lexapro but would like to know this info also! John Ramirez * Telephone Encounter - Jessica Edwards RN - 06/07/2020 2:36 PM CDT Routing refill request to provider for review/approval because: PHQ-9 > 4. PHQ 06/05/2019 11/26/2019 04/27/2020 PHQ-9 Total Score 13 5 9 Q9: Thoughts of better off /self-harm past 2 weeks Several days Not at all Not at all F/U: Thoughts of suicide or self-harm - - - F/U: Safety concerns - - - NOVA-7 SCORE 06/05/2019 11/26/2019 04/27/2020 Total Score - - - Total Score - - - Total Score 19 11 16 Jessica Edwards RN documented in this encounter Plan of Treatment Not on file documented as of this encounter Visit Diagnoses Diagnosis Major depressive disorder, recurrent episode, mild (H) Major depressive disorder, recurrent episode, mild NOVA (generalized anxiety disorder) Generalized anxiety disorder documented in this encounter Additional Health Concerns Infection Onset Date Last Indicated Resolved Time COVID-19 Comment:02/26/2022- Patient reports positive test on 02/23/22. Darlin Gao, Infection Prevention. 02/23/2022 02/26/2022 11:41 PM CDT Rule Out COVID-19 07/16/2022 07/16/2022 08/06/2022 11:39 PM CDT Assessment Noted Time PHQ-9 Depression Total Score: 9 04/27/20 20 11:11 AM CDT documented as of this encounter Care Teams Senior Telecommunications Specialist Relationship Specialty Start Date End Date John Kelley PA-C [address] [place] [address] PCP - General Physician Qa Architect - Medical 12/15/19 John Kelley PA-C [address]672 [place] [address] Assigned PCP 04/19/19 06/11/20 Lizzie Shine, COURTNEY Personal Advocate & Liaison (PAL) 02/04/20 John Kelley PA-C 12937 [place] [address] Assigned PCP 06/12/20 02/04/21 John Kelley PA-C 40945 [place] [address] Assigned PCP 02/05/21 07/27/22 Stacy Callahan MD Assigned Allergy Provider 04/14/22 10/11/23 Ortega Martin DO [address] [address] Assigned PCP 07/28/22 03/01/23 John Kelley PA-C [address] [place] [address] Assigned PCP 03/02/23 documented as of this encounter
--- OUTSIDE RECORDS SUMMARY | 2024-07-20 15:03 | XMS_ITS | Encounter Summary ---
Author Organization [facility] Address [address] [place] [address] Care Team Providers Care Home Attendant Name Role Phone John Kelley PA-C Unavailable + John Kelley PA-C Primary Care Provider Lizzie Shine RN Unavailable Unavailable John Kelley PA-C Unavailable + John Kelley PA-C Unavailable + Stacy Callahan MD Unavailable [phone] Ortega Martin DO Unavailable John Kelley PA-C Unavailable + Encounter Details Date Type Department Care Team (Late st Contact Info) Description 05/02/2020 MyC Medical Advice [facility], [address] [place] [address] Dasha Horne RN Social History Tobacco Use Types Packs/Day Years Used Date Smoking Tobacco: Never Smokeless Tobacco: Never Alcohol Use Standard Drinks/Week Comments No 0 (1 standard drink = 0.6 oz pur e alcohol) PHQ-2 Answer Date Recorded PHQ-2 Score 3 04/27/2020 Sex and Gender Information Value Date Recorded Sex Assigned at Not on file Gender Identity Not on file Sexual Orientation Not on file COVID-19 Exposure Response Date Recorded In the last month, have you been in contact with someone who was confirmed or suspected to have Coronavirus / COVID-19? No / Unsure 04/27/2020 2:53 PM CDT documented as of this encounter Plan [...] documented as of this encounter Care Teams Home Attendant Relationship Specialty Start Date End Date John Kelley PA-C [address] [place] [address] PCP - General Physician Director Food And Beverage - Medical 12/15/19 John Kelley PA-C [address]3624 [place] [address] Assigned PCP 04/19/19 06/11/20 Lizzie Shine, COURTNEY Personal Advocate & Liaison (PAL) 02/04/20 John Kelley PA-C [address]45[address] [place] [address] Assigned PCP 06/12/20 02/04/21 John Kelley PA-C [address]3553 [place] [address] Assigned PCP 02/05/21 07/27/22 Stacy Callahan MD Assigned Allergy Provider 04/14/22 10/11/23 Ortega Martin DO [address] [address] Assigned PCP 07/28/22 03/01/23 John Kelley PA-C [address] [place] [address] Assigned PCP 03/02/23 documented as of this encounter
--- OUTSIDE RECORDS SUMMARY | 2024-07-20 15:03 | XMS_ITS | Encounter Summary ---
Author Organization [facility] Address [address] [place] [address] Care Team Providers Care Clinical Education Consultant Name Role Phone Macrina Purvis MD Primary Care Provider + John Kelley-C Unavailable + John Kelley-C Unavailable + Natasha Horner APRN PULPIT OPERATOR Unavailable + John Kelley-C Unavailable + John KelleyC Primary Care Provider + Lizzie Shine RN Unavailable Unavailable John Kelley PA-C Unavailable + John Kelley-C Unavailable + Stacy Callahan MD Unavailable +[phone] Ortega Martin DO Unavailable John Kelley PA-C Unavailable + Encounter Details Date Type Department Care Team (Late st Contact Info) Description 09/12/2018 MyC Medical Advice [facility], [address] [place] [address] Sara Patterson MA Social History Tobacco Use Types Packs/Day Years Used Date Smoking Tobacco: Never Smokeless Tobacco: Never Alcohol Use Standard Drinks/Week Comments No 0 (1 standard drink = 0.6 oz pur e alcohol) Sex and Gender Information Value Date Recorded [...] Assessment Noted Time PHQ-9 Depression Total Score: 4 05/13/20 18 7:11 AM CDT documented as of this encounter Care Teams Clinical Education Consultant Relationship Specialty Start Date End Date Macrina Purvis MD PCP - General Family Practice 09/04/15 12/14/19 John Kelley PA-C [address] [place] [address] PCP - Assigned PCP 10/27/17 12/23/18 John Kelley PA-C [address]4843 [place] [address] PCP - General Physician Waste Water Or Water Plant Operator - Medical 12/15/19 John Kelley PA-C [address]9585 [place] [address] Assigned PCP 10/27/17 04/11/19 Natasha Horner APRN PULPIT OPERATOR [address] [place] [address] Assigned PCP 04/12/19 04/18/19 John Kelley PA-C [address] [place] [address] Assigned PCP 04/19/19 06/11/20 Lizzie Shine RN Personal Advocate & Liaison (PAL) 02/04/20 John Kelley PA-C [address] [place] [address] Assigned PCP 06/12/20 02/04/21 John Kelley PA-C [address] [place] [address] Assigned PCP 02/05/21 07/27/22 Stacy Callahan MD Assigned Allergy Provider 04/14/22 10/11/23 Ortega Martin DO [address] [place] [address] Assigned PCP 07/28/22 03/01/23 Jhon Kelley PA-C [address] [place] [address] Assigned PCP 03/02/23 documented as of this encounter
--- OUTSIDE RECORDS SUMMARY | 2024-07-20 15:03 | XMS_ITS | Encounter Summary ---
Author Organization [facility] Address [address] [place] [address] Care Team Providers Care Catcher Plug Name Role Phone John Kelley PA-C Unavailable + John Kelley PA-C Primary Care Provider + Lizzie Shine RN Unavailable Unavailable John Kelley PA-C Unavailable + John Kelley PA-C Unavailable + Stacy Callahan MD Unavailable +- [phone] Ortega Martin DO Unavailable John Kelley PA-C Unavailable + Encounter Details Date Type Department Care Team (Late st Contact Info) Description 06/08/2020 MyC Medical Advice [address] [address] Gianfranco Smalls RN Social History Tobacco Use Types Packs/Day [...] Assessment Noted Time PHQ-9 Depression Total Score: 2 06/10/20 20 7:07 AM CDT documented as of this encounter Care Teams Catcher Plug Relationship Specialty Start Date End Date John Kelley PA-C 41144 [place] [address] PCP - General Physician Revenue Cycle Consultant - Medical 12/15/19 John Kelley PA-C 06160 [place] [address] Assigned PCP 04/19/19 06/11/20 Lizzie Shine, COURTNEY Personal Advocate & Liaison (PAL) 02/04/20 John Kelley PA-C 87028 [place] [address] Assigned PCP 06/12/20 02/04/21 John Kelley PA-C 21031 [place] [address] Assigned PCP 02/05/21 07/27/22 Stacy Callahan MD Assigned Allergy Provider 04/14/22 10/11/23 Ortega Martin DO [address] [address] Assigned PCP 07/28/22 03/01/23 John Kelley PA-C 53683 MERI M[place] [address] Assigned PCP 03/02/23 documented as of this encounter
--- OUTSIDE RECORDS SUMMARY | 2024-07-20 15:03 | XMS_ITS | Encounter Summary ---
Author Organization [facility] Address [address] [place] [address] Care Team Providers Care Slot Machine Mechanic Name Role Phone Macrina Purvis MD Primary Care Provider + John Kelley-C Unavailable + John Kelley-C Unavailable + Natasha Horner APRN RECONCILER Unavailable + John Kelley-C Unavailable + John KelleyC Primary Care Provider + Lizzie Shine RN Unavailable Unavailable John Kelley-C Unavailable + John Kelley-Adelia Unavailable + Stacy Callahan MD Unavailable +- [phone] Ortega Martin DO Unavailable John Kelley-C Unavailable + Reason for Visit * Reason Onset Date Comments Refill Request 12/23/2018 busPIRone (BUSPA R) 10 MG tablet Encounter Details Date Type Department Care Team (Late st Contact Info) Description 12/23/2018 Refill [facility] [address] [facility], [address] [place] [address] John Kelley PA-C [address] [place] [address] Refill Request (busPIRone (BUSPAR) 10 MG tablet) Social History Tobacco Use Types Packs/Day Years [...] encounter Miscellaneous Notes * Telephone Encounter - Dasha Horne RN - 12/23/2018 3:28 PM MILL STENCILER LMTCB- Follow up appointment needed. Instructions Return in about 1 month (around 12/24/2018) for Follow up, Med Check. Routing refill request to provider for review/approval because: Labs out of range: PHQ9 Dasha Horne RN Flex STENCILER * Telephone Encounter - Burke Torres - 12/23/2018 7:51 AM CST Requested Prescriptions Pending Prescriptions Disp Refills ??? busPIRone (BUSPAR) 10 MG tablet [Pharmacy Med Name: BUSPIRONE HCL 10 MG TABLET] 90 tablet 0 Last Written Prescription Date: 11/26/2018 Last Fill Quantity: 90 tablet, # refills: 0 Last office visit: 11/26/2018 with prescribing provider: 11/26/2018 Future Office Visit: Sig: TAKE 1 TABLET (10 MG) BY MOUTH 2 TIMES DAILY Atypical Antidepressants Protocol Failed - 12/23/2018 1:04 AM Failed - Patient has PHQ-9 score less than 5 in past 6 months. Please review last PHQ-9 score. PHQ-9 SCORE 02/22/2017 05/12/2018 11/26/2018 PHQ-9 Total Score - - - PHQ-9 Total Score MyChart - - - PHQ-9 Total Score 4 4 13 NOVA-7 SCORE 10/23/2016 05/12/2018 11/26/2018 Total Score - - - Total Score - - - Total Score 17 19 21 Passed - Medication active on med list Passed - Patient is age 18 or older Passed - No active on record Passed - No positive test in past 12 mos Passed - Recent (6 mo) or future (30 days) visit within the authorizing provider's specialty Patient had office visit in the last 6 months or has a visit in the next 30 days with authorizing provider or within the authorizing provider's specialty. See Patient Info tab in inbasket, or Choose Columns in Meds & Orders section of the refill encounter. Burke Torres XRT STENCILER documented in this encounter Plan of Treatment [...] Depression Total Score: 13 019 9:21 AM MILL STENCILER documented as of this encounter Care Teams Slot Machine Mechanic Relationship Specialty Start Date End Date Macrina Purvis MD PCP - General Family Practice 09/04/15 12/14/19 John Kelley PA-C 61591 [place] [address] PCP - Assigned PCP 10/27/17 12/23/18 John Kelley PA-C 05728 [place] [address]284 PCP - General Physician Crosscutter - Medical 12/15/19 John Kelley PA-C [address] [place] [address] Assigned PCP 10/27/17 04/11/19 Natasha Horner APRN CNP [address] [place] [address] Assigned PCP 04/12/19 04/18/19 John Kelley PA-C 27[address] [place] [address] Assigned PCP 04/19/19 06/11/20 Lizzie Shine RN Personal Advocate & Liaison (PAL) 02/04/20 John Kelley PA-C 14[address] [place] [address] Assigned PCP 06/12/20 02/04/21 John Kelley PA-C [address]6712 [place] [address] Assigned PCP 02/05/21 07/27/22 Stacy Callahan MD Assigned Allergy Provider 04/14/22 10/11/23 Ortega Martin DO [address] [address] Assigned PCP 07/28/22 03/01/23 John Kelley PA-C 73513 MEIR [place] [address] Assigned PCP 03/02/23 documented as of this encounter
--- OUTSIDE RECORDS SUMMARY | 2024-07-20 15:03 | XMS_ITS | Encounter Summary ---
Author Organization [facility] Address [address] [place] [address] Care Team Providers Care Visual Inspector Name Role Phone John Kelley PA-C Primary Care Provider Lizzie Shine RN Unavailable Unavailable John Kelley PA-C Unavailable + John Kelley PA-C Unavailable +[phone] Stacy Callahan MD Unavailable [phone] VeronicaOrtega burrell DO Unavailable John Kelley PA-C Unavailable +[phone] Reason for Visit * Reason Comments Medication Refill Encounter Details Date Type Department Care Team (Late st Contact Info) Description 10/18/[address] [address] Talia Howe MD PRIMARY ENT [address] [facility] [address] [address] Medication Refill Social History Tobacco Use Types [...] encounter Miscellaneous Notes * Telephone Encounter - Saul Mayes - 10/20/2020 1:08 PM CST Instructed patient to call her primary care physician Dr. Kelley for refills. ECTING ENGINEER * Telephone Encounter - Talia Howe MD - 10/20/2020 12:09 PM CST Patient needs to see her PCP for refills- MARY Burleson ECTING ENGINEER * Telephone Encounter - Payton Hope RN - 10/20/2020 7:42 AM CST Routing refill request to provider for review/approval because: Failing bp Failing mammo New med. Was advised 1 month recheck with primary. Has not scheduled. Payton Hope RN ECTING ENGINEER documented in this encounter Plan of Treatment Not on file documented as of this encounter Visit Diagnoses Diagnosis Vaginal dryness Other specified symptom associated with female genital organs Atrophic vaginitis Postmenopausal atrophic vaginitis documented in this encounter Additional Health Concerns Infection Onset Date Last Indicated Resolved Time COVID-19 Comment:02/26/2022- Patient reports positive test on 02/23/22. Darlin Gao, Infection Prevention. 02/23/2022 02/26/2022 2 11:41 PM CDT Rule Out COVID-19 07/16/2022 07/16/2022 08/06/2022 11:39 PM CDT Assessment Noted Time PHQ-9 Depression Total Score: 2 06/10/20 20 7:07 AM CDT documented as of this encounter Care Teams Visual Inspector Relationship Specialty Start Date End Date John Kelley PA-C [address] [place] [address] PCP - General Physician Emergency Management System Director - Medical 12/15/19 Lizzie Shine, RN Personal Advocate & Liaison (PAL) 02/04/20 John Kelley PA-C [address] [place] [address] Assigned PCP 06/12/20 02/04/21 John Kelley PA-C [address] [place] [address] Assigned PCP 02/05/21 07/27/22 [place] [address] [place] [place], [place] [address] Assigned Allergy Provider 04/14/22 10/11/23 Ortega Martin DO [address] [address] Assigned PCP 07/28/22 03/01/23 John Kelley PA-C [address] [place] [address] Assigned PCP 03/02/23 documented as of this encounter
--- OUTSIDE RECORDS SUMMARY | 2024-07-20 15:03 | XMS_ITS | Encounter Summary ---
Author Organization [facility] Address [address] [place] [address] Care Team Providers Care Safety Net Maker Name Role Phone Macrina Purvis MD Primary Care Provider + John Kelley PA-C Unavailable + John Kelley PA-C Primary Care Provider + Lizzie Shine RN Unavailable Unavailable John Kelley PA-C Unavailable + John Kelley PA-C Unavailable + Stacy Callahan MD Unavailable [phone] Ortega Martin DO Unavailable John Kelley PA-C Unavailable + Encounter Details Date Type Department Care Team (Late st Contact Info) Description 10/29/2019 MyC Medical Advice [facility] [address] [facility], [address] [place] [address] Sara Patterson MA Social History [...] Time PHQ-9 Depression Total Score: 13 019 11:50 AM CDT documented as of this encounter Care Teams Safety Net Maker Relationship Specialty Start Date End Date Macrina Purvis MD PCP - General Family Practice 09/04/15 12/14/19 John Kelley PA-C 17387 [place] [address] PCP - General Physician Chiropractic Physician - Medical 12/15/19 John Kelley PA-C 74739 ME[place] [id number] Assigned PCP 04/19/19 06/11/20 Lizzie Shine RN Personal Advocate & Liaison (PAL) 02/04/20 John Kelley PA-C 21942 ME[place] [id number] Assigned PCP 06/12/20 02/04/21 John Kelley PA-C 52202 MEIR [place] [id number] Assigned PCP 02/05/21 07/27/22 Stacy Callahan MD Assigned Allergy Provider 04/14/22 10/11/23 Ortega Martin DO [address] [address] Assigned PCP 07/28/22 03/01/23 John Kelley [place] [address] [place] [address] Assigned PCP 03/02/23 documented as of this encounter
--- OUTSIDE RECORDS SUMMARY | 2024-07-20 15:03 | XMS_ITS | Encounter Summary ---
Author Organization [facility] Address [address] [place] [address]. [place] [address] Care Team Providers Care Research And Insights Executive Name Role Phone John Kelley PA-C Unavailable [phone] John Kelley PA-C Primary Care Provider Lizzie Shine RN Unavailable Unavailable John Kelley PA-C Unavailable +[phone] John Kelley PA-C Unavailable +[phone] Stacy Callahan MD Unavailable [phone] Ortega Martin DO Unavailable John Kelley PA-C Unavailable + [phone] Reason for Visit * Reason Comments Medication Refill Encounter Details Date Type Department Care Team (Late st Contact Info) Description 04/25/2020 Refill [facility], [address] [place] [address] John Kelley PA-C [address] [place] [address] Medication Refill Social History Tobacco [...] PM CDT documented as of this encounter Miscellaneous Notes * Telephone Encounter - Gianfranco Smalls RN - 04/26/2020 11:51 AM CDT Called and spoke with patient. Recommended taking tylenol for pain per A.P. note. Patient reports that given her fatty liver disease she is concerned with taking tylenol as well. Patient experiences sciatica pain and would like to discuss other alternatives to pain management (other meds, etc.). Video visit scheduled with A.P. 04/27/2020. Gianfranco Alfred RN * Telephone Encounter - John Kelley PA-C - 04/25/2020 10:00 PM CDT What does she need the Rx for that she can't take OTC ibuprofen for on occasion? She does need to be careful with taking too much NSAID's as they can affect kidney function as we can see with her labs here. I would recommend that she try sticking with Tylenol for pain when needed and we can rechecklabs when she is in next. I am going to deny this rx for now. John * Telephone Encounter - Skye Gleason RN - 04/25/2020 3:32 PM CDT Routing refill request to provider for review/approval because: Labs out of range: Creatinine Creatinine Date Value Ref Range Status 01/12/2020 0.46 (L) 0.52 - 1.04 mg/dL Final Skye Healy RN, BSN documented in this encounter Plan of Treatment [...] Noted Time PHQ-9 Depression Total Score: 5 11/26/19 20 8:49 AM DIESEL PILE DRIVER OPERATOR documented as of this encounter Care Teams Research And Insights Executive Relationship Specialty Start Date End Date John Kelley PA-C 04673 [place] [address] PCP - General Physician City Engineer - Medical 12/15/19 John Kelley PA-C 44477 [place] [address] Assigned PCP 04/19/19 06/11/20 Lizzie Shine, COURTNEY Personal Advocate & Liaison (PAL) 02/04/20 John Kelley PA-C 73816 [place] [address] Assigned PCP 06/12/20 02/04/21 John Kelley PA-C 70868 [place] [address] Assigned PCP 02/05/21 07/27/22 Stacy Callahan MD Assigned Allergy Provider 04/14/22 10/11/23 Ortega Martin DO [address] [facility] [address] [place] [address] Assigned PCP 07/28/22 03/01/23 John Kelley PA-C 27250 [place] [address] Assigned PCP 03/02/23 documented as of this encounter
--- OUTSIDE RECORDS SUMMARY | 2024-07-20 15:03 | XMS_ITS | Encounter Summary ---
Author Organization [facility] Address [address] [place] [address] Care Team Providers Care Natural Gas Shothole Driller Name Role Phone John Kelley PA-C Primary Care Provider Lizzie Shine RN Unavailable Unavailable John Kelley PA-C Unavailable + [phone] John Kelley PA-C Unavailable + [phone] Stacy Callahan MD Unavailable [phone] VeronicaEfren burrellh DO Unavailable John Kelley PA-C Unavailable + [phone] Encounter Details Date Type Department Care Team (Late st Contact Info) Description 01/24/2021 MyC Medical Advice [address] [address] Sara Patterson MA Social History Tobacco Use [...] have Coronavirus / COVID-19? No / Unsure 01/25/2021 10:50 AM CDT documented as of this encounter [...] Assessment Noted Time PHQ-9 Depression Total Score: 20 021 8:59 AM CDT documented as of this encounter Care Teams Natural Gas Shothole Driller Relationship Specialty Start Date End Date John Kelley PA-C 34885 [place] [address] PCP - General Physician Acoustics Teacher - Medical 12/15/19 Lizzie Shine RN Personal Advocate & Liaison (PAL) 02/04/20 John Kelley PA-C 95096 [place] [address] Assigned PCP 06/12/20 02/04/21 John Kelley PA-C 10081 [place] 869[address] Assigned PCP 02/05/21 07/27/22 [place] [address] [place] [address] Assigned Allergy Provider 04/14/22 10/11/23 Ortega Martin DO [address] [address] Assigned PCP 07/28/22 03/01/23 John Kelley PA-C 49791 ME[place] [address] Assigned PCP 03/02/23 documented as of this encounter
--- OUTSIDE RECORDS SUMMARY | 2024-07-20 15:03 | XMS_ITS | Encounter Summary ---
Author Organization [facility] Address [address] [place] [address]. [place] [address] Care Team Providers Care Rack Production Worker Name Role Phone John Kelley PA-C Primary Care Provider Lizzie Shine RN Unavailable Unavailable John Kelley PA-C Unavailable + John Kelley PA-C Unavailable + Stacy Callahan MD Unavailable [phone] VeronicaEfren burrellh DO Unavailable John Kelley PA-C Unavailable +[phone] Reason for Visit * Reason Comments Medication Refill Encounter Details Date Type Department Care Team (Late st Contact Info) Description 01/25/2021 Refill [facility] [address] [place] [phone] Garett Madrigal PA-C [phone] [place] [address] [id number] Medication Refill Social History Tobacco Use Types [...] AM CDT documented as of this encounter Miscellaneous Notes * Telephone Encounter - Sheila Ortiz RN - 01/25/2021 5:16 PM CDT Routing refill request to provider for review/approval because: Elevated PHQ-9. 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 Darlin Gao, Infection Prevention. 02/23/2022 02/26/2022 11:41 PM CDT Rule Out COVID-19 07/16/2022 07/16/2022 08/06/2022 11:39 PM CDT Assessment Noted Time PHQ-9 Depression Total Score: 3 01/26/20 21 10:57 AM CDT documented as of this encounter Care Teams Rack Production Worker Relationship Specialty Start Date End Date John Kelley PA-C 89213 [place] [address] PCP - General Physician Lacquer Polisher - Medical 12/15/19 Lizzie Shine RN Personal Advocate & Liaison (PAL) 02/04/20 John Kelley PA-C 99781 [place] [address] Assigned PCP 06/12/20 02/04/21 John Kelley PA-C 34752 [place] [address] Assigned PCP 02/05/21 07/27/22 [place] [address] [place] [address] Assigned Allergy Provider 04/14/22 10/11/23 Ortega Martin DO [address] [place] [address] Assigned PCP 07/28/22 03/01/23 John Kelley PA-C 78113 [place] [address] Assigned PCP 03/02/23 documented as of this encounter
--- OUTSIDE RECORDS SUMMARY | 2024-07-20 15:03 | XMS_ITS | Encounter Summary ---
Author Organization [facility] Address [address] [place] [address]. [place] [address] Care Team Providers Care Health Inspector Food Name Role Phone John Kelley PA-C Primary Care Provider Lizzie Shine RN Unavailable Unavailable John Kelley PA-C Unavailable [phone] Stacy Callahan MD Unavailable [phone] Ortega Martin DO Unavailable John Kelley PA-C Unavailable + [phone] Encounter Details Date Type Department Care Team (Late st Contact Info) Description 08/03/2021 MyC Medical Advice [address] [phone] Zenon Dickinson DO [address] [place] [address] Social History Tobacco Use Types Packs/Day Years [...] have Coronavirus / COVID-19? No / Unsure 07/31/2021 12:33 PM CDT documented as of this encounter [...] documented as of this encounter Care Teams Health Inspector Food Relationship Specialty Start Date End Date John Kelley PA-C 01294 [place] [address] PCP - General Physician Care Management Coordinator - Medical 12/15/19 Lizzie Shine, COURTNEY Personal Advocate & Liaison (PAL) 02/04/20 John Kelley PA-C 94080 [place] [address] Assigned PCP 02/05/21 07/27/22 [place] [address] [place] [address] Assigned Allergy Provider 04/14/22 10/11/23 Ortega Martin DO [address] [address] Assigned PCP 07/28/22 03/01/23 John Kelley PA-C 26284 ME[place] [address]48[address] Assigned PCP 03/02/23 documented as of this encounter
--- OUTSIDE RECORDS SUMMARY | 2024-07-20 15:03 | XMS_ITS | Encounter Summary ---
Author Organization [facility] Address [address] [place] [address] Care Team Providers Care Ent Nurse Name Role Phone Macrina Purvis MD Primary Care Provider + John Kelley-C Unavailable + John Kelley-C Unavailable + Natasha Horner APRN SKILL LABOR Unavailable + John Kelley-C Unavailable + John KelleyC Primary Care Provider + Lizzie Shine RN Unavailable Unavailable John Kelley PA-C Unavailable + John Kelley-C Unavailable + Stacy Callahan MD Unavailable +[phone] Ortega Martin DO Unavailable John Kelley PA-C Unavailable + Encounter Details Date Type Department Care Team (Late st Contact Info) Description 01/29/2018 MyC Medical Advice [facility], [address] [place] [address] Sara Patterson MA Social History [...] Noted Time PHQ-9 Depression Total Score: 4 02/24/20 17 7:04 AM CDT documented as of this encounter Care Teams Ent Nurse Relationship Specialty Start Date End Date Macrina Purvis MD PCP - General Family Practice 09/04/15 12/14/19 John Kelley PA-C 68711 [place] [address] PCP - Assigned PCP 10/27/17 12/23/18 John Kelley PA-C 32433 [place] [address] PCP - General Physician Fabric And Textile Factory Worker - Medical 12/15/19 John Kelley PA-C 32044 [place] [address] Assigned PCP 10/27/17 04/11/19 Natasha Horner APRN SKILL LABOR 93168 [place] [address] Assigned PCP 04/12/19 04/18/19 John Kelley PA-C 22451 [place] [address] Assigned PCP 04/19/19 06/11/20 Lizzie Shine RN Personal Advocate & Liaison (PAL) 02/04/20 John Kelley PA-C [address] [place] [address] Assigned PCP 06/12/20 02/04/21 John Kelley PA-C 134[address] [place] [address] Assigned PCP 02/05/21 07/27/22 Stacy Callahan MD Assigned Allergy Provider 04/14/22 10/11/23 Ortega Martin DO [address] [place] [address] Assigned PCP 07/28/22 03/01/23 John Kelley PA-C [address] [place] [address] Assigned PCP 03/02/23 documented as of this encounter
--- OUTSIDE RECORDS SUMMARY | 2024-07-20 15:03 | XMS_ITS | Encounter Summary ---
Author Organization [facility] Address [address] [place] [address] Care Team Providers Care Vaccine Key Customer Leader Name Role Phone John Kelley PA-C Primary Care Provider Lizzie Shine RN Unavailable Unavailable John Kelley PA-C Unavailable + John Kelley PA-C Unavailable + Stacy Callahan MD Unavailable [phone] Veronica Ortega DO Unavailable John Kelley PA-C Unavailable +[phone] Encounter Details Date Type Department Care Team (Latest Contact Info) Description 01/11/2021 Historic Results Social History Tobacco Use Types Packs/Day Years Used Date Smoking Tobacco: Never Smokeless Tobacco: Never Alcohol Use Standard Drinks/Week Comments No 0 (1 standard drink = 0.6 oz pur e alcohol) PHQ-2 Answer Date Recorded PHQ-2 Score 6 01/11/2021 Sex and Gender Information Value Date Recorded Sex Assigned at Not on file Gender Identity Not on file Sexual Orientation Not on file COVID-19 Exposure Response Date Recorded In the last month, have you been in contact with someone who was confirmed or suspected to have Coronavirus / COVID-19? No / Unsure 01/11/2021 8:54 AM CDT documented as of this encounter [...] documented as of this encounter Care Teams Vaccine Key Customer Leader Relationship Specialty Start Date End Date John Kelley PA-C 91557 [place] [address] PCP - General Physician Doughnut Machine Operator - Medical 12/15/19 Lizzie Shine, COURTNEY Personal Advocate & Liaison (PAL) 02/04/20 John Kelley PA-C 37541 [place] [address] Assigned PCP 06/12/20 02/04/21 John Kelley PA-C 73535 [place] [address] Assigned PCP 02/05/21 07/27/22 [place] [address] [place] 276[address] Assigned Allergy Provider 04/14/22 10/11/23 Ortega Martin DO [address] [address] Assigned PCP 07/28/22 03/01/23 John Kelley PA-C 70213 [place] [address] Assigned PCP 03/02/23 documented as of this encounter
--- OUTSIDE RECORDS SUMMARY | 2024-07-20 15:03 | XMS_ITS | Encounter Summary ---
Author Organization [facility] Address [address] [place] [address] Care Team Providers Care Concrete Tester Name Role Phone John Kelley PA-C Primary Care Provider Lizzie Shine RN Unavailable Unavailable John Kelley PA-C Unavailable [phone] Stacy Callahan MD Unavailable [phone] Ortega Martin DO Unavailable John Kelley PA-C Unavailable + [phone] Encounter Details Date Type Department Care Team (Late st Contact Info) Description 02/22/2022 MyC Medical Advice [address] [address] Helen Watson MA Social History Tobacco Use Types Packs/Day [...] Time PHQ-9 Depression Total Score: 1 08/01/20 21 7:02 AM CDT documented as of this encounter Care Teams Concrete Tester Relationship Specialty Start Date End Date John Kelley PA-C 82129 [place] [address] PCP - General Physician Director Of Social Work - Medical 12/15/19 Lizzie Shine, COURTNEY Personal Advocate & Liaison (PAL) 02/04/20 John Kelley PA-C 24846 [place] [address] Assigned PCP 02/05/21 07/27/22 [place] [address] [place] [address] Assigned Allergy Provider 04/14/22 10/11/23 Ortega Martin DO [address] [address] Assigned PCP 07/28/22 03/01/23 John Kelley PA-C 79089 [place] [address] Assigned PCP 03/02/23 documented as of this encounter
--- OUTSIDE RECORDS SUMMARY | 2024-07-20 15:03 | XMS_ITS | Encounter Summary ---
Author Organization [place] Address [address] [place] [address]. [place] [address] Care Team Providers Care Vtc Technician Name Role Phone John Kelley PA-C Primary Care Provider Lizzie Shine RN Unavailable Unavailable John Kelley PA-C Unavailable + [phone] John Kelley PA-C Unavailable + [phone] Stacy Callahan MD Unavailable [phone] VeronicaEfren burrellh DO Unavailable John Kelley PA-C Unavailable + [phone] Reason for Visit * Reason Comments Medication Refill Encounter Details Date Type Department Care Team (Late st Contact Info) Description 08/21/2020 [facility], [address] [place] [address] [place] [address] [address], [place] [id number] Medication Refill Social History Tobacco Use Types [...] encounter Miscellaneous Notes * Telephone Encounter - Martha Reed RN - 08/23/2020 11:52 AM CST Medication refilled per [facility] [place] Martha Reed RN OTHERAPIST documented in this encounter Plan of Treatment [...] documented as of this encounter Care Teams Vtc Technician Relationship Specialty Start Date End Date John Kelely PA-C [address] [address] [address] PCP - General Physician Acetylene Cylinder Packing Mixer - Medical 12/15/19 Lizzie Shine RN Personal Advocate & Liaison (PAL) 02/04/20 John Kelley PA-C 74493 [place] [address] Assigned PCP 06/12/20 02/04/21 John Kelley PA-C 87580 [place] [address] Assigned PCP 02/05/21 07/27/22 [place] [address] [address] [place], [place] [address] Assigned Allergy Provider 04/14/22 10/11/23 Ortega Martin DO [address] [address] Assigned PCP 07/28/22 03/01/23 John Kelley PA-C 89389 [place] [address] Assigned PCP 03/02/23 documented as of this encounter
--- OUTSIDE RECORDS SUMMARY | 2024-07-20 15:03 | XMS_ITS | Encounter Summary ---
Author Organization [place] Address [address] [place] [address] Care Team Providers Care Box Spring Frame Builder Name Role Phone John Kelley PA-C Primary Care Provider Lizzie Shine RN Unavailable Unavailable John Kelley PA-C Unavailable [phone] Stacy Callahan MD Unavailable [phone] Ortega Martin DO Unavailable John Kelley PA-C Unavailable + [phone] Encounter Details Date Type Department Care Team (Late st Contact Info) Description 04/11/2021 [facility] Medical Advice [address] [address] Sara Patterson MA Social History [...] documented as of this encounter Care Teams Box Spring Frame Builder Relationship Specialty Start Date End Date John Kelley PA-C [address] [address] [place] [address] PCP - General Physician Patent Counsel - Medical 12/15/19 Lizzie Shine, COURTNEY Personal Advocate & Liaison (PAL) 02/04/20 John Kelley PA-C 82191 [place] [address] Assigned PCP 02/05/21 07/27/22 [place] [address] [address] [place] [address] Assigned Allergy Provider 04/14/22 10/11/23 Ortega Martin DO [address] [address] Assigned PCP 07/28/22 03/01/23 John Kelley PA-C 74684 [place] [address] Assigned PCP 03/02/23 documented as of this encounter
--- OUTSIDE RECORDS SUMMARY | 2024-07-20 15:03 | XMS_ITS | Encounter Summary ---
Author Organization [place] Address [address] [place] [address] Care Team Providers Care Court Abstractor Name Role Phone John Kelley PA-C Primary Care Provider Lizzie Shine RN Unavailable Unavailable John Kelley PA-C Unavailable [phone] Stacy Callahan MD Unavailable [phone] Ortega Martin DO Unavailable John Kelley PA-C Unavailable + [phone] Encounter Details Date Type Department Care Team (Late st Contact Info) Description 04/27/2021 My[facility] Medical Advice [address] [address] Raven Muhammad Social History Tobacco Use Types Packs/Day Years [...] documented as of this encounter Care Teams Court Abstractor Relationship Specialty Start Date End Date John Kelley PA-C [address] [place] [address] PCP - General Physician Credit Checker - Medical 12/15/19 Lizzie Shine, COURTNEY Personal Advocate & Liaison (PAL) 02/04/20 John Kelley PA-C 17400 [place] [address] Assigned PCP 02/05/21 07/27/22 [place] [address] [place] [address] Assigned Allergy Provider 04/14/22 10/11/23 Ortega Martin DO [address] [address] Assigned PCP 07/28/22 03/01/23 John Kelley PA-C [address]1139 [place] [address] Assigned PCP 03/02/23 documented as of this encounter
--- OUTSIDE RECORDS SUMMARY | 2024-07-20 15:03 | XMS_ITS | Encounter Summary ---
Author Organization [place] Address [address] [place] [address]. [place] [address] Care Team Providers Care [employer] Principal Name Role Phone John Kelley PA-C Primary Care Provider Lizzie Shine RN Unavailable Unavailable John Kelley PA-C Unavailable [phone] Stacy Callahan MD Unavailable [phone] Ortega Martin DO Unavailable John Kelley PA-C Unavailable + [phone] Encounter Details Date Type Department Care Team (Late st Contact Info) Description 02/22/2022 My[facility] Medical Advice [address] [phone] Zenon Dickinson DO [address] [place] [address] Social History Tobacco Use Types Packs/Day Years [...] documented as of this encounter Care Teams [employer] Principal Relationship Specialty Start Date End Date John Kelley PA-C [address]907 [place] [address] PCP - General Physician Health Officer - Medical 12/15/19 Lizzie Shine, COURTNEY Personal Advocate & Liaison (PAL) 02/04/20 John Kelley PA-C 76139 [place] [address] Assigned PCP 02/05/21 07/27/22 [place] [address] [address] [address] Assigned Allergy Provider 04/14/22 10/11/23 Ortega Martin DO [facility] [address] [address] Assigned PCP 07/28/22 03/01/23 John Kelley PA-C 47295 [place] [address] Assigned PCP 03/02/23 documented as of this encounter
--- OUTSIDE RECORDS SUMMARY | 2024-07-20 15:04 | XMS_ITS | Clinical Summary ---
Author Organization [facility] Address [address] [place] [address] Care Team Providers Care Freelance Data Entry Name Role Phone Unavailable Primary Care Provider Unavailabl e Source Comments Patient records contain information from all sites at [facility]. For routine questions regarding patient records, call [phone] during business hours, M-F 8:00 AM - 5:00 PM Central Time. Record requests for emergency care only can be directed to [phone] at any time.[facility] Allergies Active Allergy Reactions Criticality Noted Date Comments House Dust Mite Other (see comments) 01/11/2023 Medications Medication Sig Dispensed Refills Start Date End Date Status albuterol 90 mcg/actuation inhaler Inhale 2 puffs as needed. Active budesonide (PULMICORT) 180 mcg/actuation inhaler Inhale 2 puffs as needed. Active cholecalciferol, vitamin D3, 25 mcg (1,000 Unit) tablet Take 1 tablet by mouth daily. 09/14/2013 Active diphenhydrAMINE (BENADRYL) 25 mg capsule Take 25 mg by mouth. Active escitalopram (LEXAPRO) 20 mg tablet Take 20 mg by mouth daily. 10/25/2022 Active ibuprofen (ADVIL,MOTRIN) 200 mg tablet Take 400 mg by mouth. Active rosuvastatin (CRESTOR) 5 mg tablet Take 1 tablet (5 mg total) by mouth daily. 90 tablet 3 01/24/2023 Active magnesium 200 mg tablet Take 200 mg by mouth every morning before breakfast. Active tirzepatide (Mounjaro) 10 mg/0.5 mL pen injector injectionIndications:P reDiabetes,Insulin Resistance, Unspecified,Spells Undifferentiated Inject 0.5 mL (10 mg total) under the skin every 7 (seven) days for 28 days. 2 mL 10/15/2023 Active tirzepatide (Mounjaro) 15 mg/0.5 mL pen injector injectionIndications:P reDiabetes,Insulin Resistance, Unspecified,Spells Undifferentiated Inject 0.5 mL (15 mg total) under the skin every 7 (seven) days. Start when 12.5mg dose is completed and tolerated 2 mL 10/15/2023 11/12/2024 Active tirzepatide (Mounjaro) 12.5 mg/0.5 mL pen injector injectionIndications:P reDiabetes,Insulin Resistance, Unspecified,Spells Undifferentiated INJECT 0.5ML (12.5 MG) EVERY 7 DAYS. START AFTER 10MG DOSE 2 mL 1 02/13/2024 Active semaglutide (Ozempic) 2 mg/dose (8 mg/3 mL) injection Inject 2 mg under the skin every 7 (seven) days. 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 from Last 3 Months Family History Medical History Relation Name Comments Stroke Brother 1 Mann Hypertension Brother 2 Mohamed Diabetes Brother 3 Mohamed , mann Psychiatric Brother 4 Francisco Transient ischemic attack Mother Mann Thyroid disease Sister Camelia Relation Name Status Comments Brother 1 Mann Brother 2 Mohamed Brother 3 Mohamed , mann Brother 4 Francisco Mother Mann Sister Camelia Social History Tobacco Use Types Packs/Day Years Used Date Smoking Tobacco: Never Smokeless Tobacco: Never Alcohol Use Standard Drinks/Week Comments Never 0 (1 standard drink = 0.6 oz pur e alcohol) Humiliation, Afraid, Rape, and Kick questionnair e Answer Date Recorded Within the last year, have y ou been afraid of your partner or ex-partner? No 01/14/2023 Within the last year, have y ou been humiliated or emotionally abused in other ways by your partner or ex-partner? No Within the last year, have y ou been kicked, hit, slapped, or otherwise physically hurt by your partner or ex-partner? No 01/14/2023 Within the last year, have y ou been raped or forced to have any kind of sexual activity by your partner or ex-partner? No 01/14/2023 Social Connection and Isolat ion Panel [NHANES] Answer Date Recorded In a typical week, how many times do you talk on the phone with family, friends, or neighbors? More than three times a week 01/14/2023 How often do you get togethe r with friends or relatives? Never 01/14/2023 How often do you attend chur ch or tenriism services? 1 to 4 times per year 01/14/2023 Do you belong to any clubs o r organizations such as quaker groups, unions, fraternal or athletic groups, or school groups? No 01/14/2023 How often do you attend meet ings of the clubs or organizations you belong to? Never 01/14/2023 Are you , , di vorced, , never , or living with a partner? 01/14/2023 AUDIT-C Answer Date Recorded Q1: How often do you have a drink containing alc ohol? Never 01/14/2023 Average Number of Drinks Not on file 023 Frequency of Binge Drinking Not on file 12/20 Overall Financial Resource Strain (CARDIA) Answe r Date Recorded How hard is it for you to pa y for the very basics like food, housing, medical care, and heating? Not hard at all 01/14/2023 [facility] [place] of Occupat ional Health - Occupational Stress Questionnaire Answer Date Recorded Do you feel stress - tense, restless, nervous, or anxious, or unable to sleep at night because your mind is troubled all the time - these days? To some extent 01/14/2023 Exercise Vital Sign Answer Date Recorde d On average, how many days pe r week do you engage in moderate to strenuous exercise (like a brisk walk)? 0 days 01/14/2023 On average, how many minutes do you engage in exercise at this level? 0 min 01/14/2023 Hunger Vital Sign Answer Date Recorded Within the past 12 months, y ou worried that your food would run out before you got the money to buy more. Never true 01/15/20 Within the past 12 months, t he food you bought just didn't last and you didn't have money to get more. Never true 01/14/2023 PRAPARE - Transportation Answer Date Re corded In the past 12 months, has l ack of transportation kept you from medical appointments or from getting medications? No 12/20 In the past 12 months, has l ack of transportation kept you from meetings, work, or from getting things needed for daily living? No 01/14/2023 Housing Stability Vital Sign Answer Jeison e Recorded In the last 12 months, was t here a time when you were not able to pay the mortgage or rent on time? No 01/14/2023 In the last 12 months, how many places have you lived? 1 01/14/2023 In the last 12 months, was t here a time when you did not have a steady place to sleep or slept in a usp (including now)? No 01/14/2023 Nutrition Answer Date Recorded On average, how many serving s of fruits and vegetables do you eat per day (serving size is equal to 1 cup or approximately the size of a tennis ball)? 2-3 01/14/2023 Dental Answer Date Recorded Dental: Regular Dentist Yes 01/15/20 Employment Answer Date Recorded Employment status Unemployed/not in e paid workforce and NOT seeking employment 01/14/2023 Education Answer Date Recorded What is the highest level of school you have completed or the highest degree you have received? Bachelor's degree (e.g., BA, AB, BS) 01/14/2023 Sex and Gender Information Value Date Recorded Sex Assigned at Female 01/14/2023 4:51 PM CDT Gender Identity Female 01/14/2023 4:51 PM CDT Sexual Orientation Straight 01/14/2023 4: 51 PM CDT Last Filed Vital Signs Vital Sign Reading Time Taken Comments Blood Pressure 128/72 01/17/2023 10:35 AM CDT Pulse 74 01/17/2023 10:35 AM CDT Temperature - - Respiratory Rate 22 01/17/2023 10:35 AM CDT Oxygen Saturation 98% 01/17/2023 10:35 AM CDT Inhaled Oxygen Concentration - - Weight 104 kg (229 lb 11.5 oz) 01/14/2023 1:26 P M CDT Height 171.5 cm (5' 7.52) 01/18/2023 1:05 PM CD T Body Mass Index 35.43 01/14/2023 1:26 PM CDT Plan of Treatment Health Maintenance Due Date Last Done Comments CT Colonography 1968 Cologuard 1968 FIT 1968 HIV Screening 1968 Hepatitis C Screening 1968 Hepatitis B Vaccines (1 of 3 - 19+ 3-dose series) 02/01/1987 Cervical Cancer Screening 10/27/20152012 (Performed elsewhere) Zoster Vaccines (1 of 2) 02/01/2018 Depression Screening (Annual PHQ-2) 10/21/2023 COVID-19 Vaccine ( season) 2024 03/09/2021, 02/17/2021 Influenza Vaccine (#1) 2024 4, 10/31/2012, 09/23/2011 Fasting Glucose for Diabetes Screening 04/29/2025 04/29/2024, 03/24/2024, 10/07/2023, Additional history exists Mammogram 05/28/2025 05/28/2024, 08/0 05/2024, 09/14/2013 (Performed elsewhere) DTaP,Tdap,and Td Vaccines (4 - Td or Tdap) 03/30/2029 03/30/2019, 03/21/2011, 03/20/2011, Additional history exists Lipid (Cholesterol) Screening 04/29/2029 04/29/2024, 10/07/2023, 03/22/2023, Additional history exists Colonoscopy 12/15/2029 12/15/2019 Colorectal Cancer Screening 12/15/2029 Pneumococcal vaccine (0-64 years) Aged Out No longer eligible based on patient's age to complete this topic Procedures Procedure Name Priority Date/Time Associated Diagnosis Comments HEMOGLOBIN A1C, B Routine 10/07/2023 12: 51 PM BOOK BINDER PreDiabetes LIPID PANEL, S Routine 10/07/2023 12:50 PM BOOK BINDER PreDiabetes from Last 3 Months or Most Recently Relevant to Health Maintenance
--- OUTSIDE RECORDS SUMMARY | 2024-07-20 15:04 | XMS_ITS | Encounter Summary ---
Author Organization [place] Address [address] [place] [address] Care Team Providers Care Traveling Clerk Name Role Phone Macrina Purvis MD Primary Care Provider + John Kelley-C Unavailable + John Kelley-C Unavailable + Natasha Horner APRN LANDMEN Unavailable + John Kelley PA-C Unavailable + John Kelley-C Primary Care Provider + Lizzie Shine RN Unavailable Unavailable John Kelley PA-C Unavailable + John Kelley PA-C Unavailable + Stacy Callahan MD Unavailable +- [phone] Ortega Martin DO Unavailable John Kelley PA-C Unavailable + Encounter Details Date Type Department Care Team (Late st Contact Info) Description 09/06/2016 MyC Medical Advice [facility], [address] [place] [phone] Jessica Edwards, COURTNEY Social History Tobacco Use Types Packs/Day Years [...] Noted Time PHQ-9 Depression Total Score: 14 016 7:08 AM CARD FEEDER documented as of this encounter Care Teams Traveling Clerk Relationship Specialty Start Date End Date Macrina Purvis MD PCP - General Family Practice 09/04/15 12/14/19 John Kelley PA-C [address]15 [address] [id number] PCP - Assigned PCP 10/27/17 12/23/18 John Kelley PA-C 97074 [address] [place] [id number] PCP - General Physician Commissions Manager - Medical 12/15/19 John Kelley PA-C 04098 [place] [id number] Assigned PCP 10/27/17 04/11/19 Natasha Horner APRN CNP 26155 [place] [place] [id number] Assigned PCP 04/12/19 04/18/19 John Kelley PA-C [address] [place] [address] Assigned PCP 04/19/19 06/11/20 Lizzie Shine, COURTNEY Personal Advocate & Liaison (PAL) 02/04/20 John Kelley PA-C [address] [place] [address] Assigned PCP 06/12/20 02/04/21 John Kelley PA-C [address] [place] [address] Assigned PCP 02/05/21 07/27/22 Stacy Callahan MD Assigned Allergy Provider 04/14/22 10/11/23 Ortega Martin DO [address] [place] [address] Assigned PCP 07/28/22 03/01/23 John Kelley PA-C [address] [place] [address] Assigned PCP 03/02/23 documented as of this encounter
--- OUTSIDE RECORDS SUMMARY | 2024-07-20 15:04 | XMS_ITS | Encounter Summary ---
Author Organization [place] Address [address] [place] [address] Care Team Providers Care Material Lister Name Role Phone Alba Heard MD Primary Care Provider Unavailab Macrina Burgess MD Primary Care Provider + John Kelley-C Unavailable + John Kelley-C Unavailable + Natasha Horner FUSING LINE INSPECTOR SHAPING MACHINE TENDER Unavailable + John Kelley-C Unavailable + John Kelley-C Primary Care Provider + Lizzie Shine RN Unavailable Unavailable John Kelley-C Unavailable + John Kelley-Adelia Unavailable + Stacy Callahan MD Unavailable +- [phone] Ortega Martin DO Unavailable John Kelley-C Unavailable + Encounter Details Date Type Department Care Team (Late st Contact Info) Description 03/16/2011 [facility] [address] [address] Martin Gomez Social History Tobacco Use Types Packs/Day Years [...] COVID-19 07/16/2022 07/16/2022 08/06/2022 11:39 PM CDT documented as of this encounter Care Teams Material Lister Relationship Specialty Start Date End Date Alba Heard MD PCP - General Family Practice 11/24/10 09/03/15 Macrina Purvis MD PCP - General Family Practice 09/04/15 12/14/19 John Kelley PA-C [address] [place] [address] PCP - Assigned PCP 10/27/17 12/23/18 John Kelley [place]-C [address] [place] [address] PCP - General Physician Paper Cap Machine Operator - Medical 12/15/19 John Kelley PA-C [address] [place] [address] Assigned PCP 10/27/17 04/11/19 Natasha Horner APRN SHAPING MACHINE TENDER [address] [place] [address] Assigned PCP 04/12/19 04/18/19 John Kelley PA-C [address] [place] [address] Assigned PCP 04/19/19 06/11/20 Lizzie Shine, COURTNEY Personal Advocate & Liaison (PAL) 02/04/20 John Kelley PA-C [address] [place] [address] Assigned PCP 06/12/20 02/04/21 John Kelley PA-C [address] [place] [address] Assigned PCP 02/05/21 07/27/22 Stacy Callahan MD Assigned Allergy Provider 04/14/22 10/11/23 Ortega Martin DO [address] [address] Assigned PCP 07/28/22 03/01/23 John Kelley PA-C [address] [place] [address] Assigned PCP 03/02/23 documented as of this encounter
--- OUTSIDE RECORDS SUMMARY | 2024-07-20 15:04 | XMS_ITS ---
Author Organization [facility] Address [address] [place] [address] Care Team Providers Care Steeping Press Operator Name Role Phone Unavailable Unavailable Unavailable Surgery Details Not on file Complications Check Surgery Details section. Procedure Estimated Blood Loss Check Surgery Details section. Procedure Findings Check Surgery Details section. Procedure Specimens Taken Check Surgery Details section.
--- OUTSIDE RECORDS SUMMARY | 2024-07-20 15:04 | XMS_ITS | Encounter Summary ---
Author Organization [facility] Address [address] [place] [address] Care Team Providers Care Skoog Machine Operator Name Role Phone Alba Heard MD Primary Care Provider Unavailab Macrina Burgess MD Primary Care Provider + John Kelley-C Unavailable + John Kelley-C Unavailable + Natasha Horner GRAIN SHIPPER ASSISTANT PROFESSOR OF ANTHROPOLOGY Unavailable + John Kelley-C Unavailable + John Kelley-C Primary Care Provider + Lizzie Shine RN Unavailable Unavailable John Kelley-C Unavailable + John Kelley-Adelia Unavailable + Stacy Callahan MD Unavailable +- [phone] Ortega Martin DO Unavailable John Kelley-C Unavailable + Encounter Details Date Type Department Care Team (Late st Contact Info) Description 02/05/2011 [facility] [address] [phone] Martin Gomez Social History Tobacco Use Types [...] documented as of this encounter Care Teams Skoog Machine Operator Relationship Specialty Start Date End Date Alba Heard MD PCP - General Family Practice 11/24/10 09/03/15 Macrina Purvis MD PCP - General Family Practice 09/04/15 12/14/19 John Kelley PA-C [address] [place] [address] PCP - Assigned PCP 10/27/17 12/23/18 John Kelley PA-C [address] [place] [address] PCP - General Physician Chef De Partie - Medical 12/15/19 John Kelley PA-C [address] [place] [address] Assigned PCP 10/27/17 04/11/19 Natasha Horner APRN ASSISTANT PROFESSOR OF ANTHROPOLOGY [address] [place] [address] Assigned PCP 04/12/19 04/18/19 John Kelley PA-C [address] [place] [address] Assigned PCP 04/19/19 06/11/20 Lizzie Shine, COURTNEY Personal Advocate & Liaison (PAL) 02/04/20 John Kelley PA-C [address] [place] [address] Assigned PCP 06/12/20 02/04/21 John Kelley PA-C [address] [place] [address] Assigned PCP 02/05/21 07/27/22 Stacy Callahan MD Assigned Allergy Provider 04/14/22 10/11/23 Ortega Martin DO [address] [address] Assigned PCP 07/28/22 03/01/23 John Kelley PA-C [address] [place] [address] Assigned PCP 03/02/23 documented as of this encounter
--- OUTSIDE RECORDS SUMMARY | 2024-07-20 15:04 | XMS_ITS | Encounter Summary ---
Author Organization [facility] Address [address] [place] [address] Care Team Providers Care Printing Plate Setter Name Role Phone Unavailable Primary Care Provider Unavailabl e Encounter Details Date Type Department Care Team (Late st Contact Info) Description 04/09/2024 Orders Only Division of Endocrinology in [place], [place] [address] [place] [phone] Siobhan Andrews M.B., B.Ch., Ph.D. [address] [place] [address] Social History Tobacco Use Types Packs/Day Years [...] often do you attend chur ch or druze services? 1 to 4 times per year 01/14/2023 Do you belong to any clubs o r organizations such as zoroastrianism groups, unions, fraternal or athletic groups, or [...] and heating? Not hard at all 01/14/2023 [facility] of Occupat ional Health - Occupational Stress [...] money to buy more. Never true 01/15/20 23 Within the past 12 months, t he food you bought just didn't last and you didn't have money to get more. Never true 01/14/2023 PRAPARE - Transportation Answer Date Re corded In the past 12 months, has l ack of transportation kept you from medical appointments or from getting medications? No 03/2 04/2023 In the past 12 months, has l [...] place to sleep or slept in a m[facility] (including now)? No 01/14/2023 Nutrition Answer Date Recorded On average, how many serving s of fruits and vegetables do you eat per day (serving size is equal to 1 cup or approximately the size of a tennis ball)? 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
--- OUTSIDE RECORDS SUMMARY | 2024-07-20 15:04 | XMS_ITS | Encounter Summary ---
Author Organization [facility] Address [address] [place] [address] Care Team Providers Care Senior Radiation Therapist Name Role Phone Alba Heard MD Primary Care Provider Unavailab Macrina Burgess MD Primary Care Provider + John Kelley PA-C Unavailable + John Kelley-C Unavailable + Natasha Horner YARD ATTENDANT TREASURY AGENT Unavailable + John Kelley-C Unavailable + John Kelley-C Primary Care Provider + Lizzie Shine RN Unavailable Unavailable John Kelley PA-C Unavailable + John Kelley PA-C Unavailable + Stacy Callahan MD Unavailable +- [phone] Ortega Martin DO Unavailable John Kelley-C Unavailable + Encounter Details Date Type Department Care Team (Late st Contact Info) Description 04/15/2014 [facility] Social History Tobacco Use Types Packs/Day Years [...] as of this encounter Care Teams Senior Radiation Therapist Relationship Specialty Start Date End Date Alba Heard MD PCP - General Family Practice 11/24/10 09/03/15 Macrina Purvis MD PCP - General Family Practice 09/04/15 12/14/19 John Kelley PA-C [id number] [address] [address] PCP - Assigned PCP 10/27/17 12/23/18 John Kelley PA-C 42372 [address] [place] [address] PCP - General Physician Physician Representative - Medical 12/15/19 John Kelley PA-C 99884 [address] [place] [address] Assigned PCP 10/27/17 04/11/19 Natasha Horner APRN CNP [id number] [address] [place] [address] Assigned PCP 04/12/19 04/18/19 John Kelley PA-C 01791 [place] [address] Assigned PCP 04/19/19 06/11/20 Lizzie Shine, RN Personal Advocate & Liaison (PAL) 02/04/20 John Kelley PA-C 68429 [place] [address] Assigned PCP 06/12/20 02/04/21 John Kelley PA-C 56870 RENEM[address] JAMSandoval [place], [place] [id number] Assigned PCP 02/05/21 07/27/22 Stacy Callahan MD Assigned Allergy Provider 04/14/22 10/11/23 Ortega Martin DO [address] [address] Assigned PCP 07/28/22 03/01/23 John Kelley PA-C 50098 [place] [address] Assigned PCP 03/02/23 documented as of this encounter
--- OUTSIDE RECORDS SUMMARY | 2024-07-20 15:04 | XMS_ITS | Referral Summary ---
Author Organization [facility] Address [address] [place] [address] Care Team Providers Care Loan Examiner Name Role Phone Unavailable Primary Care Provider Unavailabl e Source Comments Patient records contain information from all sites at [facility]. For routine questions regarding patient records, call [phone] during business hours, M-F 8:00 AM - 5:00 PM Central Time. Record requests for emergency care only can be directed to [phone] at any time.[facility] Encounters Date Type Department Care Team Description 06/18/2024 Documentation Division of Endocrinology in [place], [place] [address] [place] [address] Siobhan Andrews M.B., B.Ch., Ph.D. 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 1 to 4 times per year 01/14/2023 Do you belong to any clubs o r organizations such as voodoo groups, unions, fraternal or athletic groups, or [...] and heating? Not hard at all 01/14/2023 [facility] of Occupat ional Health - Occupational Stress [...] place to sleep or slept in a residential (including now)? No 01/14/2023 Nutrition Answer Date Recorded On average, how many serving s of fruits and vegetables do you eat per day (serving size is equal to 1 cup or approximately the size of a tennis ball)? 2-3 01/14/2023 Dental Answer Date Recorded Dental: Regular Dentist Yes 01/15/20 Employment Answer Date Recorded Employment status Unemployed/not in th e paid workforce and NOT seeking employment [...] 01/14/2023 1:26 PM CDT Plan of Treatment Not on file Procedures Procedure Name Priority Date/Time Associated Diagnosis Comments HEMOGLOBIN A1C, B Routine 10/07/2023 12: 51 PM WARDROBE ATTENDANT PreDiabetes LIPID PANEL, S Routine 10/07/2023 12:50 PM WARDROBE ATTENDANT PreDiabetes from Last 3 Months or Most Recently Relevant to Health Maintenance
--- OUTSIDE RECORDS SUMMARY | 2024-07-20 15:04 | XMS_ITS | Encounter Summary ---
Author Organization [facility] Address [address] [place] [address] Care Team Providers Care University Manager Name Role Phone Alba Heard MD Primary Care Provider Unavailab Macrina Burgess MD Primary Care Provider + John Kelley-C Unavailable + John Kelley-C Unavailable + Natasha Horner MOBILE HOME INSTALLER SCREEN MACHINE OPERATOR Unavailable + John Kelley-C Unavailable + John Kelley-C Primary Care Provider + Lizzie Shine RN Unavailable Unavailable John Kelley-C Unavailable + John Kelley-Adelia Unavailable + Stacy Callahan MD Unavailable +- [phone] Ortega Martin DO Unavailable John Kelley-C Unavailable + Encounter Details Date Type Department Care Team (Late st Contact Info) Description 11/04/2012 [facility] [address] [address] Martin Gomez Social History Tobacco Use Types [...] documented as of this encounter Care Teams University Manager Relationship Specialty Start Date End Date Alba Heard MD PCP - General Family Practice 11/24/10 09/03/15 Macrina Purvis MD PCP - General Family Practice 09/04/15 12/14/19 John Kelley [place] [address] [place] [address] PCP - Assigned PCP 10/27/17 12/23/18 John Kelley [place] [address] [place] [address] PCP - General Physician Freight Trucker - Medical 12/15/19 John Kelley [place] [address] [place] [address] Assigned PCP 10/27/17 04/11/19 Natasha Horner APRN SCREEN MACHINE OPERATOR [address] [place] [address] Assigned PCP 04/12/19 04/18/19 John Kelley PA-C [address] [place] [address] Assigned PCP 04/19/19 06/11/20 Lizzie Shine, COURTNEY Personal Advocate & Liaison (PAL) 02/04/20 John Kelley PA-C [address] [place] [address] Assigned PCP 06/12/20 02/04/21 John Kelley PA-C 264[address] [place] [address] Assigned PCP 02/05/21 07/27/22 Stacy Callahan MD Assigned Allergy Provider 04/14/22 10/11/23 Ortega Martin DO [address] [address] Assigned PCP 07/28/22 03/01/23 John Kelley PA-C [address] [place] [address] Assigned PCP 03/02/23 documented as of this encounter
--- OUTSIDE RECORDS SUMMARY | 2024-07-20 15:04 | XMS_ITS | Encounter Summary ---
Author Organization [facility] Address [address] [place] [address] Care Team Providers Care Bilingual Social Worker Name Role Phone Unavailable Primary Care Provider Unavailabl e Encounter Details Date Type Department Care Team (Late st Contact Info) Description 06/18/2024 Documentation Division of Endocrinology in [place], [place] [address] [place] [phone] Siobhan Andrews M.B., B.Ch., Ph.D. [address] [place] [address] Social History Tobacco Use Types Packs/Day Years [...] often do you attend chur ch or muslim services? 1 to 4 times per year 01/14/2023 Do you belong to any clubs o r organizations such as congregation groups, unions, fraternal or athletic groups, or [...] and heating? Not hard at all 01/14/2023 [facility] of Occupat ional Health - Occupational Stress [...] place to sleep or slept in a detention (including now)? No 01/14/2023 Nutrition Answer Date [...] PM CDT documented as of this encounter Progress Notes * Siobhan Andrews M.B., B.Ch., Ph.D. - 06/18/2024 7:11 AM CDT Images from the original note were not included. ASSESSMENT / PLAN Patient didn't attend or cancel her endocrine visit on 06/17/24 documented in this encounter Plan of Treatment Not on file documented as of this encounter Visit Diagnoses Not on filedocumented in this encounter
--- OUTSIDE RECORDS SUMMARY | 2024-07-20 15:04 | XMS_ITS | Clinical Summary ---
Author Organization [email or web address] [facility] Address [place], [place] [address] Care Team Providers Care Material Checker Name Role Phone Pcp, No Primary Care Provider Unavailabl e Allergies Active Allergy Reactions Criticality Noted Date Comments Prednisone Mental Status Change 11/26/2018 Does not tolerate well, mood Medications Medication Sig Dispensed Refills Start Date End Date Status amoxicillin-clavulan ate, 500 mg-125 mg, (AUGMENTIN) 500-125 mg tablet Take 1 tablet by mouth 2 times daily with meals for 7 days 14 tablet 12/23/2017 Active oseltamivir (TAMIFLU) 75 mg capsule Take 1 capsule by mouth 2 times daily. 10 capsule 01/14/2019 Active busPIRone (BUSPAR) 10 mg tablet Take 10 mg by mouth once daily. 12/24/2018 Active escitalopram oxalate (LEXAPRO) 20 mg tablet Take 20 mg by mouth once daily. 11/26/2018 Active cyclobenzaprine (FLEXERIL) 10 mg tabletIndications:Ce rvical strain, acute, initial encounter Take 1 tablet by mouth 3 times daily if needed for Muscle Spasm. 20 tablet 03/30/2019 Active oseltamivir (TAMIFLU) 75 mg capsule Take 1 capsule by mouth 2 times daily for 5 days. 10 capsule 12/31/2019 Active cefdinir (OMNICEF) 300 mg capsule Take 1 capsule by mouth 2 times daily for 10 days. 20 capsule 12/31/2019 Active codeine-guaiFENesin (ROBITUSSIN AC) 10-100 mg/5 mL liquid Take 10 mL by mouth at bedtime if needed for cough. 60 mL 12/31/2019 Active Mounjaro 12.5 mg/0.5 mL pen Inject 12.5 mg subcutaneous. 02/13/2024 Active Immunizations Name Administration Dates Next Due Tdap 03/30/2019 Social History Tobacco Use Types Packs/Day Years Used Date Smoking Tobacco: Never Smokeless Tobacco: Never Sex and Gender Information Value Date Recorded Sex Assigned at Not on file Gender Identity Not on file Sexual Orientation Not on file Obstetrics History Last Filed Vital Signs Vital Sign Reading Time Taken Comments Blood Pressure 132/68 02/19/2024 3:46 PM CDT Pulse 75 02/19/2024 3:46 PM CDT Temperature 36.4 ??C (97.6 ??F) 02/19/2024 3:46 PM CD T Respiratory Rate 14 02/19/2024 3:46 PM CDT Oxygen Saturation 97% 02/19/2024 3:46 PM CDT Inhaled Oxygen Concentration - - Weight 99.8 kg (220 lb) 03/30/2019 3:31 PM CDT Height 172.7 cm (5' 8) 03/30/2019 3:31 PM CDT Body Mass Index 33.45 03/30/2019 3:31 PM CDT Plan of Treatment Health Maintenance Due Date Last Done Comments Depression screening for age 12+ 1980 HIV for age 15-65 02/01/1983 BMI (ht and wt on same day) for age 18+ 02/01/1986 Hepatitis C screening for ag e 18-79 02/01/1986 Pap test for age 21-65 02/01/1989 Colonoscopy through age 75 02/01/2013 Lipids for age 45-75 02/01/2013 Mammogram for age 45-75 02/01/2013 Zoster (shingles) series for age 50+ (1 of 2) 02/01/2018 COVID-19 vaccine series ( season) 2024 03/09/2021, 02/17/2021 Influenza for age 50-64 06/21/2024 Tetanus booster 03/30/2029 03/30/2019 Tdap Completed 03/30/2019 Pneumococcal series for age 6-64 Aged Out No longer eligible b ased on patient's age to complete this topic Care Teams Material Checker Relationship Specialty Start Date End Date Pcp, No . PCP - General 02/19/24
--- OUTSIDE RECORDS SUMMARY | 2024-07-20 15:04 | XMS_ITS | Encounter Summary ---
Author Organization [facility] Address [address] [place] [address] Care Team Providers Care Production Bow Maker Name Role Phone Unavailable Primary Care Provider Unavailabl e Encounter Details Date Type Department Care Team (Late st Contact Info) Description 04/17/2024 Documentation Division of Endocrinology in [place], [place] [address] [place] [phone] Siobhan Andrews M.B., B.Ch., Ph.D. [address] [place] [address] Social History Tobacco Use Types Packs/Day Years [...] often do you attend chur ch or quaker services? 1 to 4 times per year 01/14/2023 Do you belong to any clubs o r organizations such as religion groups, unions, fraternal or athletic groups, or [...] and heating? Not hard at all 01/14/2023 [facility] of Occupat ional Health - Occupational Stress [...] place to sleep or slept in a fdc (including now)? No 01/14/2023 Nutrition Answer Date [...] * Siobhan Andrews M.B., B.Ch., Ph.D. - 04/17/2024 1:55 PM CDT ASSESSMENT / PLAN Encounter generated for purposes of appeal documented in this encounter Plan of Treatment Not on file documented as of this encounter Visit Diagnoses Not on filedocumented in this encounter
--- OUTSIDE RECORDS SUMMARY | 2024-07-20 15:04 | XMS_ITS | Encounter Summary ---
Author Organization [facility] Address [address] [place] [address] Care Team Providers Care Internet Marketer Name Role Phone Alba Heard MD Primary Care Provider Unavailab Macrina Burgess MD Primary Care Provider + John Kelley-C Unavailable + John Kelley-C Unavailable + Natasha Horner MENTALLY IMPAIRED TEACHER RECLAIMER Unavailable + John Kelley-C Unavailable + John Kelley-C Primary Care Provider + Lizzie Shine RN Unavailable Unavailable John Kelley-C Unavailable + John Kelley-Adelia Unavailable + Stacy Callahan MD Unavailable +- [phone] Ortega Martin DO Unavailable John Kelley-C Unavailable + Encounter Details Date Type Department Care Team (Late st Contact Info) Description 10/27/2012 [facility] [address] [address] Martin Gomez Social History Tobacco Use Types [...] documented as of this encounter Care Teams Internet Marketer Relationship Specialty Start Date End Date Alba Heard MD PCP - General Family Practice 11/24/10 09/03/15 Macrina Purvis MD PCP - General Family Practice 09/04/15 12/14/19 John Kelley [place] [address] [place] [address] PCP - Assigned PCP 10/27/17 12/23/18 John Kelley [place] [address] [place] [address] PCP - General Physician Professor Of Communication Arts - Medical 12/15/19 John Kelley [place] [address] [place] [address] Assigned PCP 10/27/17 04/11/19 Natasha Horner APRN RECLAIMER [address] [place] [address] Assigned PCP 04/12/19 04/18/19 John Kelley PA-C [address] [place] [address] Assigned PCP 04/19/19 06/11/20 Lizzie Shine, COURTNEY Personal Advocate & Liaison (PAL) 02/04/20 John Kelley PA-C [address] [place] [address] Assigned PCP 06/12/20 02/04/21 John Kelley PA-C [address] [place] [address] Assigned PCP 02/05/21 07/27/22 Stacy Callahan MD Assigned Allergy Provider 04/14/22 10/11/23 Ortega Martin DO [address] [address] Assigned PCP 07/28/22 03/01/23 John Kelley PA-C [address] [place] [address] Assigned PCP 03/02/23 documented as of this encounter
--- OUTSIDE RECORDS SUMMARY | 2024-07-20 15:04 | XMS_ITS | Encounter Summary ---
Author Organization [facility] Address [address] [place] [address] Care Team Providers Care Philosophy Professor Name Role Phone Macrina Purvis MD Primary Care Provider + John Kelley PA-C Unavailable + John Kelley PA-C Unavailable + Natasha Horner APRN CONSTRUCTION SECRETARY Unavailable + John Kelley-C Unavailable + John Kelley PA-C Primary Care Provider + Lizzie Shine RN Unavailable Unavailable John Kelley-C Unavailable + John Kelley PA-C Unavailable + Stacy Callahan MD Unavailable +- [phone] Ortega Martin DO Unavailable John Kelley PA-C Unavailable + Reason for Visit * Reason Onset Date Comments Medication Refill 01/23/2018 escitalopram ( LEXAPRO) 20 MG tablet Encounter Details Date Type Department Care Team (Late st Contact Info) Description 01/22/2018 Refill [facility] [address] [facility], [address] [place] [address] [place] [address] [address] [address] Medication Refill (escitalopram (LEXAPRO) 20 MG tablet) Social History Tobacco Use Types [...] encounter Miscellaneous Notes * Telephone Encounter - Jessica Edwards RN - 01/23/2018 8:50 AM CDT Patient is due for an appointment and update PHQ-9. Has not been seen in almost 1 year. Tried calling patient's phone number listed and it is no longer in service. Tried calling spouses number and voice mail box has not been set up. Unable to leave a message. Please advise. Jessica Edwards RN * Telephone Encounter - Mariely Bustillo - 01/23/2018 8:14 AM CDT Requested Prescriptions Pending Prescriptions Disp Refills ??? escitalopram (LEXAPRO) 20 MG tablet [Pharmacy Med Name: ESCITALOPRAM 20 MG TABLET] 90 tablet 1 Last Written Prescription Date: 11/25/17 Last Fill Quantity: 90, # refills: 0 Last Office Visit: 01/29/2017 Future Office Visit: Sig: TAKE 1 TABLET (20 MG) BY MOUTH DAILY SSRIs Protocol Failed 01/22/2018 7:59 PM Failed - PHQ-9 score less than 5 in past 6 months PHQ-9 SCORE 09/08/2016 10/23/2016 02/22/2017 Total Score - - - Total Score MyChart 14 (Moderate depression) - - Total Score - 8 4 NOVA-7 SCORE 03/20/2016 09/08/2016 10/23/2016 Total Score - - - Total Score - 19 (severe anxiety) - Total Score 1 - 17 Failed - Recent (6 mo) or future (30 days) visit within the authorizing provider's specialty Patient had office visit in the last 6 months or has a visit in the next 30 days with authorizing provider or within the authorizing provider's specialty. See Patient Info tab in inbasket, or Choose Columns in Meds & Orders section of the refill encounter. Passed - Patient is age 18 or older Passed - No active on record Passed - No positive test in last 12 months documented in this encounter Plan of Treatment [...] documented as of this encounter Care Teams Philosophy Professor Relationship Specialty Start Date End Date Macrina Purvis MD PCP - General Family Practice 09/04/15 12/14/19 John Kelley PA-C 28852 [address] [place] [address] PCP - Assigned PCP 10/27/17 12/23/18 John Kelley PA-C 30041 [address] [place] [address] PCP - General Physician Competency Evaluated Nurse Aide - Medical 12/15/19 John Kelley PA-C 62219 [address] [place] [address] Assigned PCP 10/27/17 04/11/19 Natasha Horner APRN CNP [address] [place] [address] Assigned PCP 04/12/19 04/18/19 John Kelley PA-C [address] [place] [address] Assigned PCP 04/19/19 06/11/20 Lizzie Shine, COURTNEY Personal Advocate & Liaison (PAL) 02/04/20 John Kelley PA-C [address] [place] [address] Assigned PCP 06/12/20 02/04/21 John Kelley PA-C [address] [place] [address] Assigned PCP 02/05/21 07/27/22 Stacy Callahan MD Assigned Allergy Provider 04/14/22 10/11/23 Ortega Martin DO [address] [place] [address] Assigned PCP 07/28/22 03/01/23 John Kelley PA-C [address] [place] [address] Assigned PCP 03/02/23 documented as of this encounter
--- OUTSIDE RECORDS SUMMARY | 2024-07-20 15:04 | XMS_ITS | Encounter Summary ---
Author Organization [facility] Address [address] [place] [address] Care Team Providers Care Extended Insurance Clerk Name Role Phone Unavailable Primary Care Provider Unavailabl e Reason for Visit * Reason Onset Date Comments Rx Denial 03/30/2024 Ozempic Encounter Details Date Type Department Care Team (Latest Contact Info) Description 03/30/2024 Clinical Communication Division of Endocrinology in [place], [place] [address] [place] [phone] Siobhan Andrews M.B., B.Ch., Ph.D. [address] [place] [phone] Rx Denial (Ozempic) Social History Tobacco Use Types Packs/Day Years [...] often do you attend chur ch or cheondoism services? 1 to 4 times per year 01/14/2023 Do you belong to any clubs o r organizations such as amish groups, unions, fraternal or athletic groups, or [...] and heating? Not hard at all 01/14/2023 [facility] of Occupat ional Health - [...] place to sleep or slept in a care home (including now)? No 01/14/2023 Nutrition Answer Date [...]
[2024-07-23 05:14] LABS: HPV Source Cervix; HPV, High Risk by TMA Not Detected
== END 2024-07-20 14:56 | disposition home or self-care (01) ==
PROVIDERS: Visit Provider Physician Assistant
DX: Z12.4 Encounter for screening for malignant neoplasm of cervix (principal)
CPT/HCPCS: 87624; 87625; 88141; 88142